=== PATIENT | female | born 1945 | race Caucasian/White ===

== ENCOUNTER 2021-05-07 18:11 | Inpatient (IN) | payer MEDICARE, OTHER, SELFPAY ==
--- NOTE | ~2021-05-07 | XR_ITS ---
EXAMINATION: XR ABDOMEN KUB CLINICAL INDICATION: Constipation COMPARISON: 11/02/2018 CT scan TECHNIQUE: AP view of the abdomen. FINDINGS: Stool and air seen throughout the colon to the rectum. No significant colonic distention. No significant small bowel dilatation. Degenerative changes in the spine with vascular calcification in the aorta. XR/XR KUB IMPRESSION: Essentially unremarkable bowel gas pattern with stool and air seen throughout the colon to the rectum.
[2021-05-07 18:24] VITALS: BP 118/80; PULSE 80
[2021-05-07 18:27] VITALS: BMI 23.1
--- NOTE | 2021-05-07 18:29 | ED.ABDPAIN ---
HPI - Abdominal Pain General Chief Complaint: Altered Mental Status <Mj Perez MD - Last Filed: 05/07/21 23:40> Stated Complaint: AMS <Mj Perez MD - Last Filed: 05/07/21 23:40> Time Seen by Provider: 05/07/21 18:28 <Mj Perez MD - Last Filed: 05/07/21 23:40> Source: patient <Mj Perez MD - Last Filed: 05/07/21 23:40> Mode of arrival: ambulatory <Mj Perez MD - Last Filed: 05/07/21 23:40> Limitations: no limitations <Mj Perez MD - Last Filed: 05/07/21 23:40> History of Present Illness HPI narrative: Patient with 3 days of constipation, patient has had a history of constipation. patient was concerned because of discomfort. No changes in medications or diet. According to daughter who has now come to the ED patient has had a full dementia workup including MRI that was negative. Patient is hearing voices and feels that there are electronic waves affecting her. She is not eating. She is paranoid with the family. Tonight patient is crying and not consolable. Recenly patient is driving around to look for her daughters. Patient is socially isolated. <Mj Perez MD - Last Filed: 05/07/21 23:40> MD elicited complaint: other (rectal pain) <Mj Perez MD - Last Filed: 05/07/21 23:40> Pertinent past history: none <Mj Perez MD - Last Filed: 05/07/21 23:40> Related Data Allergies/Adverse Reactions: Allergies Allergy/AdvReac Type Severity Reaction Status Date / Time codeine [CODEINE] AdvReac Mild NAUSEA Verified 05/07/21 18:21 <Mj Perez MD - Last Filed: 05/07/21 23:40> Review of Systems Constitutional: Reports no additional constitutional complaints <Mj Perez MD - Last Filed: 05/07/21 23:40> Eyes: Reports no additional eye complaints <Mj Perez MD - Last Filed: 05/07/21 23:40> Denies dizziness <Mj Perez MD - Last Filed: 05/07/21 23:40> Cardiovascular: Reports no additional cardiovascular complaints <Mj Perez MD - Last Filed: 05/07/21 23:40> Respiratory: Reports as per HPI <Mj Perez MD - Last Filed: 05/07/21 23:40> Gastrointestinal: Reports no additional gastrointestinal complaints <Mj Perez MD - Last Filed: 05/07/21 23:40> Genitourinary: Reports no additional female genitourinary complaints <Mj Perez MD - Last Filed: 05/07/21 23:40> Musculoskeletal: Reports no additional musculoskeletal complaints <Mj Perez MD - Last Filed: 05/07/21 23:40> Skin/Breast: Denies rash <Mj Perez MD - Last Filed: 05/07/21 23:40> Reports system reviewed and no additional complaints, except as documented, Denies dizziness and Denies Sensory deficit (Neuro) <Mj Perez MD - Last Filed: 05/07/21 23:40> Psychiatric: Denies anxiety <Mj Perez MD - Last Filed: 05/07/21 23:40> Physical Exam Vital Signs: Vital Signs: Last Vital Signs Temp 97.6 F 05/09/21 03:06 Pulse 98 05/09/21 03:06 Resp 05/09/21 03:06 BP 146/83 H 05/09/21 03:06 Pulse Ox 96 05/09/21 03:06 Body Mass Index 23.1 <Mj Perez MD - Last Filed: 05/07/21 23:40> Vital Signs: Last Vital Signs Temp 97.6 F 05/09/21 03:06 Pulse 98 05/09/21 03:06 Resp 05/09/21 03:06 BP 146/83 H 05/09/21 03:06 Pulse Ox 96 05/09/21 03:06 Body Mass Index 23.1 <JACINTO Zepeda - Last Filed: 05/08/21 08:15> Vital Signs: Last Vital Signs Temp 97.6 F 05/09/21 03:06 Pulse 98 05/09/21 03:06 Resp 05/09/21 03:06 BP 146/83 H 05/09/21 03:06 Pulse Ox 96 05/09/21 03:06 Body Mass Index 23.1 <Ingrid Mcnamara NP - Last Filed: 05/09/21 09:45> Const: Nutritional Appearance: thin <Mj Perez MD - Last Filed: 05/07/21 23:40> Orientation/consciousness: oriented to person <Mj Perez MD - Last Filed: 05/07/21 23:40> Limitations: behavioral limitations <Mj Perez MD - Last Filed: 05/07/21 23:40> HENMT: Head: Yes normal to inspection <Mj Perez MD - Last Filed: 05/07/21 23:40> Ears: external ears normal <Mj Perez MD - Last Filed: 05/07/21 23:40> General nose exam: Normal external nose present <Mj Perez MD - Last Filed: 05/07/21 23:40> Mouth: Normal oral and palatal mucosa present and oropharynx normal <Mj Perez MD - Last Filed: 05/07/21 23:40> Throat: Yes posterior oropharynx normal <Mj Perez MD - Last Filed: 05/07/21 23:40> Eyes: General: appearance normal, both eyes and all related structures <Mj Perez MD - Last Filed: 05/07/21 23:40> Neck: Other: supple <Mj Perez MD - Last Filed: 05/07/21 23:40> Neck: Yes normal visual inspection <Mj Perez MD - Last Filed: 05/07/21 23:40> Chest: Chest palpation & inspection: normal inspection of the chest <Mj Perez MD - Last Filed: 05/07/21 23:40> Resp: Auscultation: clear to auscultation bilaterally <Mj Perez MD - Last Filed: 05/07/21 23:40> Cardio: Jugular venous distension: no JVD <Mj Perez MD - Last Filed: 05/07/21 23:40> Rate: regular rate <Mj Perez MD - Last Filed: 05/07/21 23:40> Rhythm: regular rhythm <Mj Perez MD - Last Filed: 05/07/21 23:40> Heart sounds: S1 normal heart sound present and S2 normal heart sound present <Mj Perez MD - Last Filed: 05/07/21 23:40> GI: Other: scaphoid nontender abdomen <Mj Perez MD - Last Filed: 05/07/21 23:40> Auscultation: normal bowel sounds <Mj Perez MD - Last Filed: 05/07/21 23:40> : General: Yes no CVA tenderness <Mj Perez MD - Last Filed: 05/07/21 23:40> Back/Spine/Pelvis: Back: no CVA tenderness <Mj Perze MD - Last Filed: 05/07/21 23:40> Skin: General skin exam: no rashes or lesions noted <Mj Perez MD - Last Filed: 05/07/21 23:40> Neuro: General: oriented to person <Mj Perez MD - Last Filed: 05/07/21 23:40> Cranial nerves: Yes CN's II-XII intact bilaterally <Mj Perez MD - Last Filed: 05/07/21 23:40> Motor exam (neuro): 5/5 motor strength present throughout <Mj Perez MD - Last Filed: 05/07/21 23:40> Sensory Exam: No Sensory deficit (Neuro) <Mj Perez MD - Last Filed: 05/07/21 23:40> Extrem: General: Yes normal to inspection <Mj Perez MD - Last Filed: 05/07/21 23:40> Psych: Appearance: grossly normal <Mj Perez MD - Last Filed: 05/07/21 23:40> Course Reevaluation(s) Reevaluation #1: Based on conversation with daughter will have her evaluated by crisis <Mj Perez MD - Last Filed: 05/07/21 23:40> Time: 18:47 <Mj Perez MD - Last Filed: 05/07/21 23:40> Reevaluation #2: Patient placed in physician observation at 11:36pm The indication for observation is that the patient needs more time to see if her depression improves or he will need to be admitted. At this time the patient is very thin, lungs clear, CV RRR, abd nontender, neuro is intact. Discussed with crisis who will discuss with psychiatry in the morning <Mj Perez MD - Last Filed: 05/07/21 23:40> Time: 23:40 <Mj Perez MD - Last Filed: 05/07/21 23:40> Reevaluation #3: Physician observation continued. No acute overnight events. VS remain stable. She is reportedly not on any medications at home, nursing to confirm this with family later this morning. She was seen by [facility] who is recommending inpatient level of care at this time. Will continue to monitor. <JACINTO Zepeda - Last Filed: 05/08/21 08:15> Time: 08:12 <JACINTO Zepeda - Last Filed: 05/08/21 08:15> Additional Reevaluation(s): 05/09 0945-patient is currently in inpatient bed search. No complaints from nursing overnight. Vital signs reviewed and stable. Will continue physician observation and pending inpatient placement <Ingrid Mcnamara NP - Last Filed: 05/09/21 09:45> MDM - Abdominal Pain Lab Data Result diagrams: : 05/07/21 19:27 05/07/21 19:27 <Mj Perez MD - Last Filed: 05/07/21 23:40> Labs: Lab Results 05/07/21 05/07/21 05/07/21 Range/Units 19:27 19:27 19:27 WBC 5.3 (4.8-10.8) X10*3/uL RBC 4.13 L (4.20-5.50) X10*6/uL Hgb 13.4 (12.0-16.0) g/dl Hct 38.9 (37-47) % MCV 94.2 (80-98) fL MCH 32.4 (27.0-33.0) pg MCHC 34.4 (31.0-35.0) g/dl RDW 13.5 (11.0-16.0) % Plt Count 190 (160-400) X10*3/uL MPV 9.8 (9.4-12.3) fL Immature Gran % (Auto) 0.2 (0.0-0.4) % Neut % (Auto) 77.9 H (45-73) % Lymph % (Auto) 15.1 L (20-40) % [place] % (Auto) 6.0 (2-11) % Eos % (Auto) 0.4 (0-4) % Baso % (Auto) 0.4 (0-2) % Lymph # (Auto) 0.8 L (1.2-4.9) X10*3/uL [place] # (Auto) 0.3 (0.1-1.2) X10*3/uL Eos # (Auto) 0.0 (0.0-0.4) X10*3/uL Baso # (Auto) 0.0 (0.0-0.2) X10*3/uL Abs Immat Gran (auto) 0.01 (0.00-0.03) X10*3/uL Absolute Neuts (auto) 4.1 (2.0-8.3) X10*3/uL Absolute Nucleated RBC 0.000 (0.0-0.012) X10*3/uL Nucleated RBC % (auto) 0.0 (0.0-0.2) /100WBC Sodium 141 (135-145) mmol/L Potassium 3.6 (3.3-5.1) mmol/L Chloride 106 (96-108) mmol/L Carbon Dioxide 24 (22-29) mmol/L Anion Gap 15 (12-20) BUN 13 (9-16) mg/dL Creatinine 0.69 (0.5-1.4) mg/dL Estim Creat Clear Calc 60.8 Estimated GFR > 60 Random Glucose 104 (60-115) mg/dL Calcium 9.4 (8.4-10.2) mg/dL Total Bilirubin 1.1 H (0.0-1.0) mg/dL AST 27 (5-31) U/L ALT 23 (0-31) U/L Alkaline Phosphatase 89 (39-117) U/L Total Protein 6.5 (6.5-8.0) g/dL Albumin 4.1 (3.5-5.0) g/dL TSH (0.32-4.0) uIU/mL Urine Color Urine Appearance Urine pH (5.0-8.0) Ur Specific [place] (1.005-1.025) Urine Protein (NEG-TRACE) MG/DL Urine Glucose (UA) (NEG) MG/DL Urine Ketones (NEG) MG/DL Urine Blood (NEG) Urine Nitrite (NEG) Ur Leukocyte Esterase (NEG) Urine RBC (0) /HPF Urine WBC (0-4) /HPF Ur Squamous Epith Cells /LPF Urine Bacteria /LPF Urine Mucus /LPF Urine Opiates Screen (Not Detect) Urine Fentanyl Screen (Not Detect) Ur Barbiturates Screen (Not Detect) Ur Phencyclidine Scrn (Not Detect) Ur Amphetamines Screen (Not Detect) U Benzodiazepines Scrn (Not Detect) Urine Cocaine Screen (Not Detect) U Marijuana (THC) Screen (Not Detect) Ethyl Alcohol < 10 mg/dL T.pallidum Ab (EIA) (Nonreactive) COVID-19 ([facility]) (Negative) COVID-19 Clin Com 05/07/21 05/07/21 05/07/21 Range/Units 21:52 22:04 22:04 WBC (4.8-10.8) X10*3/uL RBC (4.20-5.50) X10*6/uL Hgb (12.0-16.0) g/dl Hct (37-47) % MCV (80-98) fL MCH (27.0-33.0) pg MCHC (31.0-35.0) g/dl RDW (11.0-16.0) % Plt Count (160-400) X10*3/uL MPV (9.4-12.3) fL Immature Gran % (Auto) (0.0-0.4) % Neut % (Auto) (45-73) % Lymph % (Auto) (20-40) % [place] % (Auto) (2-11) % Eos % (Auto) (0-4) % Baso % (Auto) (0-2) % Lymph # (Auto) (1.2-4.9) X10*3/uL [place] # (Auto) (0.1-1.2) X10*3/uL Eos # (Auto) (0.0-0.4) X10*3/uL Baso # (Auto) (0.0-0.2) X10*3/uL Abs Immat Gran (auto) (0.00-0.03) X10*3/uL Absolute Neuts (auto) (2.0-8.3) X10*3/uL Absolute Nucleated RBC (0.0-0.012) X10*3/uL Nucleated RBC % (auto) (0.0-0.2) /100WBC Sodium (135-145) mmol/L Potassium (3.3-5.1) mmol/L Chloride (96-108) mmol/L Carbon Dioxide (22-29) mmol/L Anion Gap (12-20) BUN (9-16) mg/dL Creatinine (0.5-1.4) mg/dL Estim Creat Clear Calc Estimated GFR Random Glucose (60-115) mg/dL Calcium (8.4-10.2) mg/dL Total Bilirubin (0.0-1.0) mg/dL AST (5-31) U/L ALT (0-31) U/L Alkaline Phosphatase (39-117) U/L Total Protein (6.5-8.0) g/dL Albumin (3.5-5.0) g/dL TSH (0.32-4.0) uIU/mL Urine Color YELLOW Urine Appearance CLEAR Urine pH 5.5 (5.0-8.0) Ur Specific [place] >= 1.030 H (1.005-1.025) Urine Protein TRACE (NEG-TRACE) MG/DL Urine Glucose (UA) NEG (NEG) MG/DL Urine Ketones 15 (NEG) MG/DL Urine Blood TRACE (NEG) Urine Nitrite NEG (NEG) Ur Leukocyte Esterase NEG (NEG) Urine RBC 1-4 (0) /HPF Urine WBC 0-2 (0-4) /HPF Ur Squamous Epith Cells TRACE /LPF Urine Bacteria TRACE /LPF Urine Mucus 1+ /LPF Urine Opiates Screen Not Detected (Not Detect) Urine Fentanyl Screen Not Detected (Not Detect) Ur Barbiturates Screen Not Detected (Not Detect) Ur Phencyclidine Scrn Not Detected (Not Detect) Ur Amphetamines Screen Not Detected (Not Detect) U Benzodiazepines Scrn Not Detected (Not Detect) Urine Cocaine Screen Not Detected (Not Detect) U Marijuana (THC) Screen Not Detected (Not Detect) Ethyl Alcohol mg/dL T.pallidum Ab (EIA) (Nonreactive) COVID-19 ([facility]) Negative (Negative) COVID-19 Clin Com See Note 05/08/21 05/08/21 Range/Units 17:58 17:58 WBC (4.8-10.8) X10*3/uL RBC (4.20-5.50) X10*6/uL Hgb (12.0-16.0) g/dl Hct (37-47) % MCV (80-98) fL MCH (27.0-33.0) pg MCHC (31.0-35.0) g/dl RDW (11.0-16.0) % Plt Count (160-400) X10*3/uL MPV (9.4-12.3) fL Immature Gran % (Auto) (0.0-0.4) % Neut % (Auto) (45-73) % Lymph % (Auto) (20-40) % [place] % (Auto) (2-11) % Eos % (Auto) (0-4) % Baso % (Auto) (0-2) % Lymph # (Auto) (1.2-4.9) X10*3/uL [place] # (Auto) (0.1-1.2) X10*3/uL Eos # (Auto) (0.0-0.4) X10*3/uL Baso # (Auto) (0.0-0.2) X10*3/uL Abs Immat Gran (auto) (0.00-0.03) X10*3/uL Absolute Neuts (auto) (2.0-8.3) X10*3/uL Absolute Nucleated RBC (0.0-0.012) X10*3/uL Nucleated RBC % (auto) (0.0-0.2) /100WBC Sodium (135-145) mmol/L Potassium (3.3-5.1) mmol/L Chloride (96-108) mmol/L Carbon Dioxide (22-29) mmol/L Anion Gap (12-20) BUN (9-16) mg/dL Creatinine (0.5-1.4) mg/dL Estim Creat Clear Calc Estimated GFR Random Glucose (60-115) mg/dL Calcium (8.4-10.2) mg/dL Total Bilirubin (0.0-1.0) mg/dL AST (5-31) U/L ALT (0-31) U/L Alkaline Phosphatase (39-117) U/L Total Protein (6.5-8.0) g/dL Albumin (3.5-5.0) g/dL TSH 1.61 (0.32-4.0) uIU/mL Urine Color Urine Appearance Urine pH (5.0-8.0) Ur Specific [place] (1.005-1.025) Urine Protein (NEG-TRACE) MG/DL Urine Glucose (UA) (NEG) MG/DL Urine Ketones (NEG) MG/DL Urine Blood (NEG) Urine Nitrite (NEG) Ur Leukocyte Esterase (NEG) Urine RBC (0) /HPF Urine WBC (0-4) /HPF Ur Squamous Epith Cells /LPF Urine Bacteria /LPF Urine Mucus /LPF Urine Opiates Screen (Not Detect) Urine Fentanyl Screen (Not Detect) Ur Barbiturates Screen (Not Detect) Ur Phencyclidine Scrn (Not Detect) Ur Amphetamines Screen (Not Detect) U Benzodiazepines Scrn (Not Detect) Urine Cocaine Screen (Not Detect) U Marijuana (THC) Screen (Not Detect) Ethyl Alcohol mg/dL T.pallidum Ab (EIA) Nonreactive (Nonreactive) COVID-19 ([facility]) (Negative) COVID-19 Clin Com <Mj Perez MD - Last Filed: 05/07/21 23:40> Lab Results 05/07/21 05/07/21 05/07/21 Range/Units 19:27 19: 19:27 WBC 5.3 (4.8-10.8) X10*3/uL RBC 4.13 L (4.20-5.50) X10*6/uL Hgb 13.4 (12.0-16.0) g/dl Hct 38.9 (37-47) % MCV 94.2 (80-98) fL MCH 32.4 (27.0-33.0) pg MCHC 34.4 (31.0-35.0) g/dl RDW 13.5 (11.0-16.0) % Plt Count 190 (160-400) X10*3/uL MPV 9.8 (9.4-12.3) fL Immature Gran % (Auto) 0.2 (0.0-0.4) % Neut % (Auto) 77.9 H (45-73) % Lymph % (Auto) 15.1 L (20-40) % [place] % (Auto) 6.0 (2-11) % Eos % (Auto) 0.4 (0-4) % Baso % (Auto) 0.4 (0-2) % Lymph # (Auto) 0.8 L (1.2-4.9) X10*3/uL [place] # (Auto) 0.3 (0.1-1.2) X10*3/uL Eos # (Auto) 0.0 (0.0-0.4) X10*3/uL Baso # (Auto) 0.0 (0.0-0.2) X10*3/uL Abs Immat Gran (auto) 0.01 (0.00-0.03) X10*3/uL Absolute Neuts (auto) 4.1 (2.0-8.3) X10*3/uL Absolute Nucleated RBC 0.000 (0.0-0.012) X10*3/uL Nucleated RBC % (auto) 0.0 (0.0-0.2) /100WBC Sodium 141 (135-145) mmol/L Potassium 3.6 (3.3-5.1) mmol/L Chloride 106 (96-108) mmol/L Carbon Dioxide 24 (22-29) mmol/L Anion Gap 15 (12-20) BUN 13 (9-16) mg/dL Creatinine 0.69 (0.5-1.4) mg/dL Estim Creat Clear Calc 60.8 Estimated GFR > 60 Random Glucose 104 (60-115) mg/dL Calcium 9.4 (8.4-10.2) mg/dL Total Bilirubin 1.1 H (0.0-1.0) mg/dL AST 27 (5-31) U/L ALT 23 (0-31) U/L Alkaline Phosphatase 89 (39-117) U/L Total Protein 6.5 (6.5-8.0) g/dL Albumin 4.1 (3.5-5.0) g/dL TSH (0.32-4.0) uIU/mL Urine Color Urine Appearance Urine pH (5.0-8.0) Ur Specific [place] (1.005-1.025) Urine Protein (NEG-TRACE) MG/DL Urine Glucose (UA) (NEG) MG/DL Urine Ketones (NEG) MG/DL Urine Blood (NEG) Urine Nitrite (NEG) Ur Leukocyte Esterase (NEG) Urine RBC (0) /HPF Urine WBC (0-4) /HPF Ur Squamous Epith Cells /LPF Urine Bacteria /LPF Urine Mucus /LPF Urine Opiates Screen (Not Detect) Urine Fentanyl Screen (Not Detect) Ur Barbiturates Screen (Not Detect) Ur Phencyclidine Scrn (Not Detect) Ur Amphetamines Screen (Not Detect) U Benzodiazepines Scrn (Not Detect) Urine Cocaine Screen (Not Detect) U Marijuana (THC) Screen (Not Detect) Ethyl Alcohol < 10 mg/dL T.pallidum Ab (EIA) (Nonreactive) COVID-19 ([facility]) (Negative) COVID-19 Clin Com 05/07/21 05/07/21 05/07/21 Range/Units 21:52 22:04 22:04 WBC (4.8-10.8) X10*3/uL RBC (4.20-5.50) X10*6/uL Hgb (12.0-16.0) g/dl Hct (37-47) % MCV (80-98) fL MCH (27.0-33.0) pg MCHC (31.0-35.0) g/dl RDW (11.0-16.0) % Plt Count (160-400) X10*3/uL MPV (9.4-12.3) fL Immature Gran % (Auto) (0.0-0.4) % Neut % (Auto) (45-73) % Lymph % (Auto) (20-40) % [place] % (Auto) (2-11) % Eos % (Auto) (0-4) % Baso % (Auto) (0-2) % Lymph # (Auto) (1.2-4.9) X10*3/uL [place] # (Auto) (0.1-1.2) X10*3/uL Eos # (Auto) (0.0-0.4) X10*3/uL Baso # (Auto) (0.0-0.2) X10*3/uL Abs Immat Gran (auto) (0.00-0.03) X10*3/uL Absolute Neuts (auto) (2.0-8.3) X10*3/uL Absolute Nucleated RBC (0.0-0.012) X10*3/uL Nucleated RBC % (auto) (0.0-0.2) /100WBC Sodium (135-145) mmol/L Potassium (3.3-5.1) mmol/L Chloride (96-108) mmol/L Carbon Dioxide (22-29) mmol/L Anion Gap (12-20) BUN (9-16) mg/dL Creatinine (0.5-1.4) mg/dL Estim Creat Clear Calc Estimated GFR Random Glucose (60-115) mg/dL Calcium (8.4-10.2) mg/dL Total Bilirubin (0.0-1.0) mg/dL AST (5-31) U/L ALT (0-31) U/L Alkaline Phosphatase (39-117) U/L Total Protein (6.5-8.0) g/dL Albumin (3.5-5.0) g/dL TSH (0.32-4.0) uIU/mL Urine Color YELLOW Urine Appearance CLEAR Urine pH 5.5 (5.0-8.0) Ur Specific [place] >= 1.030 H (1.005-1.025) Urine Protein TRACE (NEG-TRACE) MG/DL Urine Glucose (UA) NEG (NEG) MG/DL Urine Ketones 15 (NEG) MG/DL Urine Blood TRACE (NEG) Urine Nitrite NEG (NEG) Ur Leukocyte Esterase NEG (NEG) Urine RBC 1-4 (0) /HPF Urine WBC 0-2 (0-4) /HPF Ur Squamous Epith Cells TRACE /LPF Urine Bacteria TRACE /LPF Urine Mucus 1+ /LPF Urine Opiates Screen Not Detected (Not Detect) Urine Fentanyl Screen Not Detected (Not Detect) Ur Barbiturates Screen Not Detected (Not Detect) Ur Phencyclidine Scrn Not Detected (Not Detect) Ur Amphetamines Screen Not Detected (Not Detect) U Benzodiazepines Scrn Not Detected (Not Detect) Urine Cocaine Screen Not Detected (Not Detect) U Marijuana (THC) Screen Not Detected (Not Detect) Ethyl Alcohol mg/dL T.pallidum Ab (EIA) (Nonreactive) COVID-19 ([facility]) Negative (Negative) COVID-19 Clin Com See Note 05/08/21 05/08/21 Range/Units 17:58 17:58 WBC (4.8-10.8) X10*3/uL RBC (4.20-5.50) X10*6/uL Hgb (12.0-16.0) g/dl Hct (37-47) % MCV (80-98) fL MCH (27.0-33.0) pg MCHC (31.0-35.0) g/dl RDW (11.0-16.0) % Plt Count (160-400) X10*3/uL MPV (9.4-12.3) fL Immature Gran % (Auto) (0.0-0.4) % Neut % (Auto) (45-73) % Lymph % (Auto) (20-40) % [place] % (Auto) (2-11) % Eos % (Auto) (0-4) % Baso % (Auto) (0-2) % Lymph # (Auto) (1.2-4.9) X10*3/uL [place] # (Auto) (0.1-1.2) X10*3/uL Eos # (Auto) (0.0-0.4) X10*3/uL Baso # (Auto) (0.0-0.2) X10*3/uL Abs Immat Gran (auto) (0.00-0.03) X10*3/uL Absolute Neuts (auto) (2.0-8.3) X10*3/uL Absolute Nucleated RBC (0.0-0.012) X10*3/uL Nucleated RBC % (auto) (0.0-0.2) /100WBC Sodium (135-145) mmol/L Potassium (3.3-5.1) mmol/L Chloride (96-108) mmol/L Carbon Dioxide (22-29) mmol/L Anion Gap (12-20) BUN (9-16) mg/dL Creatinine (0.5-1.4) mg/dL Estim Creat Clear Calc Estimated GFR Random Glucose (60-115) mg/dL Calcium (8.4-10.2) mg/dL Total Bilirubin (0.0-1.0) mg/dL AST (5-31) U/L ALT (0-31) U/L Alkaline Phosphatase (39-117) U/L Total Protein (6.5-8.0) g/dL Albumin (3.5-5.0) g/dL TSH 1.61 (0.32-4.0) uIU/mL Urine Color Urine Appearance Urine pH (5.0-8.0) Ur Specific [place] (1.005-1.025) Urine Protein (NEG-TRACE) MG/DL Urine Glucose (UA) (NEG) MG/DL Urine Ketones (NEG) MG/DL Urine Blood (NEG) Urine Nitrite (NEG) Ur Leukocyte Esterase (NEG) Urine RBC (0) /HPF Urine WBC (0-4) /HPF Ur Squamous Epith Cells /LPF Urine Bacteria /LPF Urine Mucus /LPF Urine Opiates Screen (Not Detect) Urine Fentanyl Screen (Not Detect) Ur Barbiturates Screen (Not Detect) Ur Phencyclidine Scrn (Not Detect) Ur Amphetamines Screen (Not Detect) U Benzodiazepines Scrn (Not Detect) Urine Cocaine Screen (Not Detect) U Marijuana (THC) Screen (Not Detect) Ethyl Alcohol mg/dL T.pallidum Ab (EIA) Nonreactive (Nonreactive) COVID-19 ([facility]) (Negative) COVID-19 Clin Com <JACINTO Zepeda - Last Filed: 05/08/21 08:15> Lab Results 05/07/21 05/07/21 05/07/21 Range/Units 19:27 19:27 19:27 WBC 5.3 (4.8-10.8) X10*3/uL RBC 4.13 L (4.20-5.50) X10*6/uL Hgb 13.4 (12.0-16.0) g/dl Hct 38.9 (37-47) % MCV 94.2 (80-98) fL MCH 32.4 (27.0-33.0) pg MCHC 34.4 (31.0-35.0) g/dl RDW 13.5 (11.0-16.0) % Plt Count 190 (160-400) X10*3/uL MPV 9.8 (9.4-12.3) fL Immature Gran % (Auto) 0.2 (0.0-0.4) % Neut % (Auto) 77.9 H (45-73) % Lymph % (Auto) 15.1 L (20-40) % [place] % (Auto) 6.0 (2-11) % Eos % (Auto) 0.4 (0-4) % Baso % (Auto) 0.4 (0-2) % Lymph # (Auto) 0.8 L (1.2-4.9) X10*3/uL [place] # (Auto) 0.3 (0.1-1.2) X10*3/uL Eos # (Auto) 0.0 (0.0-0.4) X10*3/uL Baso # (Auto) 0.0 (0.0-0.2) X10*3/uL Abs Immat Gran (auto) 0.01 (0.00-0.03) X10*3/uL Absolute Neuts (auto) 4.1 (2.0-8.3) X10*3/uL Absolute Nucleated RBC 0.000 (0.0-0.012) X10*3/uL Nucleated RBC % (auto) 0.0 (0.0-0.2) /100WBC Sodium 141 (135-145) mmol/L Potassium 3.6 (3.3-5.1) mmol/L Chloride 106 (96-108) mmol/L Carbon Dioxide 24 (22-29) mmol/L Anion Gap 15 (12-20) BUN 13 (9-16) mg/dL Creatinine 0.69 (0.5-1.4) mg/dL Estim Creat Clear Calc 60.8 Estimated GFR > 60 Random Glucose 104 (60-115) mg/dL Calcium 9.4 (8.4-10.2) mg/dL Total Bilirubin 1.1 H (0.0-1.0) mg/dL AST 27 (5-31) U/L ALT 23 (0-31) U/L Alkaline Phosphatase 89 (39-117) U/L Total Protein 6.5 (6.5-8.0) g/dL Albumin 4.1 (3.5-5.0) g/dL TSH (0.32-4.0) uIU/mL Urine Color Urine Appearance Urine pH (5.0-8.0) Ur Specific [place] (1.005-1.025) Urine Protein (NEG-TRACE) MG/DL Urine Glucose (UA) (NEG) MG/DL Urine Ketones (NEG) MG/DL Urine Blood (NEG) Urine Nitrite (NEG) Ur Leukocyte Esterase (NEG) Urine RBC (0) /HPF Urine WBC (0-4) /HPF Ur Squamous Epith Cells /LPF Urine Bacteria /LPF Urine Mucus /LPF Urine Opiates Screen (Not Detect) Urine Fentanyl Screen (Not Detect) Ur Barbiturates Screen (Not Detect) Ur Phencyclidine Scrn (Not Detect) Ur Amphetamines Screen (Not Detect) U Benzodiazepines Scrn (Not Detect) Urine Cocaine Screen (Not Detect) U Marijuana (THC) Screen (Not Detect) Ethyl Alcohol < 10 mg/dL T.pallidum Ab (EIA) (Nonreactive) COVID-19 ([facility]) (Negative) COVID-19 Clin Com 05/07/21 05/07/21 05/07/21 Range/Units 21:52 22:04 22:04 WBC (4.8-10.8) X10*3/uL RBC (4.20-5.50) X10*6/uL Hgb (12.0-16.0) g/dl Hct (37-47) % MCV (80-98) fL MCH (27.0-33.0) pg MCHC (31.0-35.0) g/dl RDW (11.0-16.0) % Plt Count (160-400) X10*3/uL MPV (9.4-12.3) fL Immature Gran % (Auto) (0.0-0.4) % Neut % (Auto) (45-73) % Lymph % (Auto) (20-40) % [place] % (Auto) (2-11) % Eos % (Auto) (0-4) % Baso % (Auto) (0-2) % Lymph # (Auto) (1.2-4.9) X10*3/uL [place] # (Auto) (0.1-1.2) X10*3/uL Eos # (Auto) (0.0-0.4) X10*3/uL Baso # (Auto) (0.0-0.2) X10*3/uL Abs Immat Gran (auto) (0.00-0.03) X10*3/uL Absolute Neuts (auto) (2.0-8.3) X10*3/uL Absolute Nucleated RBC (0.0-0.012) X10*3/uL Nucleated RBC % (auto) (0.0-0.2) /100WBC Sodium (135-145) mmol/L Potassium (3.3-5.1) mmol/L Chloride (96-108) mmol/L Carbon Dioxide (22-29) mmol/L Anion Gap (12-20) BUN (9-16) mg/dL Creatinine (0.5-1.4) mg/dL Estim Creat Clear Calc Estimated GFR Random Glucose (60-115) mg/dL Calcium (8.4-10.2) mg/dL Total Bilirubin (0.0-1.0) mg/dL AST (5-31) U/L ALT (0-31) U/L Alkaline Phosphatase (39-117) U/L Total Protein (6.5-8.0) g/dL Albumin (3.5-5.0) g/dL TSH (0.32-4.0) uIU/mL Urine Color YELLOW Urine Appearance CLEAR Urine pH 5.5 (5.0-8.0) Ur Specific [place] >= 1.030 H (1.005-1.025) Urine Protein TRACE (NEG-TRACE) MG/DL Urine Glucose (UA) NEG (NEG) MG/DL Urine Ketones 15 (NEG) MG/DL Urine Blood TRACE (NEG) Urine Nitrite NEG (NEG) Ur Leukocyte Esterase NEG (NEG) Urine RBC 1-4 (0) /HPF Urine WBC 0-2 (0-4) /HPF Ur Squamous Epith Cells TRACE /LPF Urine Bacteria TRACE /LPF Urine Mucus 1+ /LPF Urine Opiates Screen Not Detected (Not Detect) Urine Fentanyl Screen Not Detected (Not Detect) Ur Barbiturates Screen Not Detected (Not Detect) Ur Phencyclidine Scrn Not Detected (Not Detect) Ur Amphetamines Screen Not Detected (Not Detect) U Benzodiazepines Scrn Not Detected (Not Detect) Urine Cocaine Screen Not Detected (Not Detect) U Marijuana (THC) Screen Not Detected (Not Detect) Ethyl Alcohol mg/dL T.pallidum Ab (EIA) (Nonreactive) COVID-19 ([facility]) Negative (Negative) COVID-19 Clin Com See Note 05/08/21 05/08/21 Range/Units 17:58 17:58 WBC (4.8-10.8) X10*3/uL RBC (4.20-5.50) X10*6/uL Hgb (12.0-16.0) g/dl Hct (37-47) % MCV (80-98) fL MCH (27.0-33.0) pg MCHC (31.0-35.0) g/dl RDW (11.0-16.0) % Plt Count (160-400) X10*3/uL MPV (9.4-12.3) fL Immature Gran % (Auto) (0.0-0.4) % Neut % (Auto) (45-73) % Lymph % (Auto) (20-40) % [place] % (Auto) (2-11) % Eos % (Auto) (0-4) % Baso % (Auto) (0-2) % Lymph # (Auto) (1.2-4.9) X10*3/uL [place] # (Auto) (0.1-1.2) X10*3/uL Eos # (Auto) (0.0-0.4) X10*3/uL Baso # (Auto) (0.0-0.2) X10*3/uL Abs Immat Gran (auto) (0.00-0.03) X10*3/uL Absolute Neuts (auto) (2.0-8.3) X10*3/uL Absolute Nucleated RBC (0.0-0.012) X10*3/uL Nucleated RBC % (auto) (0.0-0.2) /100WBC Sodium (135-145) mmol/L Potassium (3.3-5.1) mmol/L Chloride (96-108) mmol/L Carbon Dioxide (22-29) mmol/L Anion Gap (12-20) BUN (9-16) mg/dL Creatinine (0.5-1.4) mg/dL Estim Creat Clear Calc Estimated GFR Random Glucose (60-115) mg/dL Calcium (8.4-10.2) mg/dL Total Bilirubin (0.0-1.0) mg/dL AST (5-31) U/L ALT (0-31) U/L Alkaline Phosphatase (39-117) U/L Total Protein (6.5-8.0) g/dL Albumin (3.5-5.0) g/dL TSH 1.61 (0.32-4.0) uIU/mL Urine Color Urine Appearance Urine pH (5.0-8.0) Ur Specific [place] (1.005-1.025) Urine Protein (NEG-TRACE) MG/DL Urine Glucose (UA) (NEG) MG/DL Urine Ketones (NEG) MG/DL Urine Blood (NEG) Urine Nitrite (NEG) Ur Leukocyte Esterase (NEG) Urine RBC (0) /HPF Urine WBC (0-4) /HPF Ur Squamous Epith Cells /LPF Urine Bacteria /LPF Urine Mucus /LPF Urine Opiates Screen (Not Detect) Urine Fentanyl Screen (Not Detect) Ur Barbiturates Screen (Not Detect) Ur Phencyclidine Scrn (Not Detect) Ur Amphetamines Screen (Not Detect) U Benzodiazepines Scrn (Not Detect) Urine Cocaine Screen (Not Detect) U Marijuana (THC) Screen (Not Detect) Ethyl Alcohol mg/dL T.pallidum Ab (EIA) Nonreactive (Nonreactive) COVID-19 ([facility]) (Negative) COVID-19 Clin Com <Ingrid Mcnamara NP - Last Filed: 05/09/21 09:45> Discharge Plan Discharge Clinical Impression: Paranoia <Mj Perez MD - Last Filed: 05/07/21 23:40> [facility] Past Medical History Medical History: Medical History (Updated 05/08/21 @ 16:45 by Karishma Baez NP) Graves' disease <Mj Perez MD - Last Filed: 05/07/21 23:40> Social History Social History: Social History Patient Tobacco Use Status: Tobacco use Unknown Advance Directives: No Guardian: No <Mj Perez MD - Last Filed: 05/07/21 23:40>
[2021-05-07 18:34] VITALS: BP 143/80; PULSE 96; RESP 18; TEMP 36.9; O2SAT 96
[2021-05-07 19:31] LABS: MANUAL DIFF FLAG NO
[2021-05-07 19:32] LABS: Basophils Percent Auto 0.4 % (0-2); Eosinophils Percent Auto 0.4 % (0-4); Hematocrit 38.9 % (37-47); Hemoglobin 13.4 g/dl (12.0-16.0); Imm Gran Abs Auto 0.01 X10*3/uL (0.00-0.03); Imm Gran Pct Auto 0.2 % (0.0-0.4); Lymphocytes Absolute Auto 0.8 X10*3/uL (1.2-4.9); Lymphocytes Percent Auto 15.1 % (20-40); Mean Corpuscular HGB Conc 34.4 g/dl (31.0-35.0); Mean Corpuscular Hemoglobin 32.4 pg (27.0-33.0); Mean Corpuscular Volume 94.2 fL (80-98); Mean Platelet Volume 9.8 fL (9.4-12.3); Monocytes Absolute Auto 0.3 X10*3/uL (0.1-1.2); Neutrophils Absolute Auto 4.1 X10*3/uL (2.0-8.3); Neutrophils Percent Auto 77.9 % (45-73); Platelet Count 190 X10*3/uL (160-400); Red Blood Count 4.13 X10*6/uL (4.20-5.50); Red Cell Distribution Width 13.5 % (11.0-16.0); White Blood Count 5.3 X10*3/uL (4.8-10.8)
[2021-05-07 19:43] LABS: Ethanol < 10 mg/dL
[2021-05-07 19:47] LABS: Alanine Aminotransferase 23 U/L (0-31); Albumin Level 4.1 g/dL (3.5-5.0); Alkaline Phosphatase 89 U/L (39-117); Anion Gap 15 (12-20); Aspartate Amino Transferase 27 U/L (5-31); Bilirubin Total 1.1 mg/dL (0.0-1.0); Blood Urea Nitrogen 13 mg/dL (9-16); Calcium 9.4 mg/dL (8.4-10.2); Carbon Dioxide 24 mmol/L (22-29); Chloride 106 mmol/L (96-108); Creatinine Clr Calc Pharmacy 60.8; Estimated Glomerular Filt Rate > 60; Glucose Random 104 mg/dL (60-115); Potassium 3.6 mmol/L (3.3-5.1); Sodium 141 mmol/L (135-145); Total Protein 6.5 g/dL (6.5-8.0)
[2021-05-07 20:32] VITALS: BP 129/74; PULSE 90; RESP 16; O2SAT 99
--- NOTE | 2021-05-07 21:25 | PC.NURSE ---
pt daughter called in and stated that her mother has been pacing at home, thinking she is going to tonight of colon cancer tells the daughter to get the kids out of the house cause she is going to be screeming in pain when she goes . pt is hearing voices, decrease po intake and weight loss noticed by the daughter Charlotte LesterPedro [phone].
[2021-05-07 22:05] VITALS: BP 149/73; PULSE 85; RESP 16; O2SAT 99
[2021-05-07 22:12] LABS: COVID-19 Test Negative (Negative)
[2021-05-07 22:28] LABS: Amphetamine Screen Urine Not Detected (Not Detect); Barbiturates, Urine Not Detected (Not Detect); Benzodiazepines Screen Urine Not Detected (Not Detect); Cannabinoid Screen Urine Not Detected (Not Detect); Cocaine Screen Urine Not Detected (Not Detect); Fentanyl, urine Not Detected (Not Detect); Opiate Screen Urine Not Detected (Not Detect); Phencyclidine Screen Urine Not Detected (Not Detect)
[2021-05-07 22:46] LABS: Appearance Urine CLEAR; Color Urine YELLOW; Glucose Urine UA NEG (NEG); Leukocyte Esterase Urine NEG (NEG); Nitrite Urine NEG (NEG); PH 5.5 (5.0-8.0); Specific Gravity - Urine >= 1.030 (1.005-1.025); UACC Culture Trigger NO; Urine Blood TRACE (NEG); Urine Ketones 15 MG/DL (NEG); Urine Protein TRACE MG/DL (NEG-TRACE)
--- NOTE | 2021-05-07 23:21 | PC.NURSE ---
pt being seen by care team at this time. pt was walking down the [place] and believed her daughter was her to pick her up. pt educated on the need to be seen by bhn for evaluation. pt followed commands and got back into her hospital gown, water given and now care team is in with the pt. pt is still confussed and doesnt recall any of the information that the daughter relayed onto this rn.
[2021-05-07 23:46] LABS: WBC Urine 0-2 /HPF (0-4)
[2021-05-07 23:47] LABS: Bacteria Urine TRACE /LPF; Mucus Urine 1+ /LPF; Squamous Epithelial Cell Urine TRACE /LPF
--- NOTE | 2021-05-08 01:39 | MHC.CARE ---
CARE team completed evaluation. Plan is so psychiatric admission to older adult unit. Pt will board in ED pending acceptance and transfer to facility/unit. She will be presented to S1 Older Adult Unit for possible admission if an appropriate bed is available.
[2021-05-08 02:00] VITALS: RESP 16
[2021-05-08 04:00] VITALS: RESP 16
[2021-05-08 05:58] VITALS: BP 150/77; PULSE 93; RESP 16; O2SAT 98
--- NOTE | 2021-05-08 07:00 | PC.NURSE ---
patient awake, seated on edge of bed, minimal spontaneous interactions with staff patient appears in no distress.
[2021-05-08 08:08] VITALS: BP 130/92; PULSE 94; RESP 15; TEMP 36.9; O2SAT 97
--- NOTE | 2021-05-08 09:57 | PC.NURSE ---
attempted to call daughter with patient unfortunately no answer.
--- NOTE | 2021-05-08 10:30 | PC.NURSE ---
brooke daughter called, has moms purse. would like updates w inpatient admission brooke [phone]
--- NOTE | 2021-05-08 12:03 | MHC.CARE ---
Returned call from patient's daughter (Charlotte Encarnacion [phone]) for an update. S1 can accept patient for admission tomorrow, advised her that we can search other facilities or wait for the opening tomorrow, daughter stated the family definitely wants patient here and will wait. She added that her mother has expressed strongly that she, won't take any pills, explained that providers will not force her to take medication but if appropriate will offer, educate and encourage. Daughter of patient feels she should not visit at this time because her mother called her and asked her to come get her and was upset, that may be more distressing. Would like to be updated if there are any changes. Psychiatrist will consult while patient is in the ED.
[2021-05-08 14:18] VITALS: BP 133/81; PULSE 106; RESP 15; TEMP 36.6; O2SAT 95
--- NOTE | 2021-05-08 15:13 | PM.PSYCN ---
History of Present Illness Date of Service: 05/08/21 Chief Complaint: AMS Reason for Consult: medication Requesting physician: Tika Roberto Discussed with referring provider: Yes Sources of Information: patient interviewed, chart reviewed and crisis/core team assessment reviewed HPI Narrative: Ruma is a 75 y.o. Who does not have a past psych history or diagnosis but is presenting at [facility] [place] [place] ED on 05/07/2021 with new onset of psychosis. Initially, Ruma arrived to the ED reporting 3 days of constipation, history of constipation. Per patient?s daughter, prior to arrival at the ED Ruma was pacing in her home, claiming that she was going to tonight from colon cancer, and told her daughter to get the children out of the house because she was going to be screaming in pain. She has disclosed to her daughter that she has been hearing voices and that there are electronic waves affecting her. Today, she is guarded and not willing to engage in clinical interview, appears paranoid. She presents with poor insight into her symptoms and does not know why she is in the hospital, saying she wants to go home and that she is refusing any evaluation today. Of note, she is now denying ever saying she had colon cancer or other bizarre behaviors, irritable when questioned about this. Per CARE team and ED eval, Ruma has had a full dementia workup including MRI in OP setting and this was negative for any pathology. She has had a decline in her mental status x 5 weeks and has been decompensating in her self care i.e. not eating, has had recent wt loss, isolating. Per her daughter, she has been presenting with bizarre behaviors that are increasingly concerning in nature, including driving around to look for her daughters, drove to a neighbors house and sat in their driveway waiting for them to come out so she could ask them where her daughter is, last week she woke daughter up in the middle of the night saying that she needed her to bring her to the police department but wouldn't tell her why and then had no recollection of it in the morning.? 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 She retired early to take care of her parents who were both struggling with Alzheimer's dementia. -Lives with , her daughter Madie and grandchildren Inna (10) and Alexander (7). Has two daughters (Madie, Charlotte), to x 44 yrs.? FH: -Parents of Alzheimer?s dementia complications PPH: -Per family, no hx of psych IPLOC, crisis evals, or psych medication trials. She recently had a cognitive evaluation and an MRI to rule out onset of dementia.?? -Briefly worked with a therapist following the of her father 17 years ago. PMH: -Daughter reported Ruma has had a poor appetite with weight loss of approximately 20lbs in the past month or so -Hx of Graves Disease, per daughter this had been in remission/ untreated for 20 yrs Substance use: -Utox Negative all substances. Denies ETOH abuse [facility] Medical History (Updated 05/08/21 @ 16:45 by Karishma Baez NP) Graves' disease Diagnostics Vital Signs (24Hr): Vital Signs - 24 hr 05/07/21 18:34 05/07/21 20:32 05/07/21 22:05 Temperature 98.4 F Pulse Rate 96 90 85 Respiratory Rate 18 16 16 Blood Pressure 143/80 H 129/74 149/73 H Pulse Oximetry 96 99 99 05/08/21 02:00 05/08/21 04:00 05/08/21 05:58 Temperature Pulse Rate 93 Respiratory Rate 16 16 16 Blood Pressure 150/77 H Pulse Oximetry 98 05/08/21 08:08 05/08/21 14:18 Temperature 98.4 F 97.9 F Pulse Rate 94 106 H Respiratory Rate 15 15 Blood Pressure 130/92 H 133/81 Pulse Oximetry 97 95 Body Mass Index 23.1 Labs Results: 05/07/21 19:27 05/07/21 19:27 Labs: Laboratory Results - last 48 hr 05/07/21 05/07/21 05/07/21 19:27 19:27 19:27 WBC 5.3 RBC 4.13 L Hgb 13.4 Hct 38.9 MCV 94.2 MCH 32.4 MCHC 34.4 RDW 13.5 Plt Count 190 MPV 9.8 Immature Gran % (Auto) 0.2 Neut % (Auto) 77.9 H Lymph % (Auto) 15.1 L [place] % (Auto) 6.0 Eos % (Auto) 0.4 Baso % (Auto) 0.4 Lymph # (Auto) 0.8 L [place] # (Auto) 0.3 Eos # (Auto) 0.0 Baso # (Auto) 0.0 Abs Immat Gran (auto) 0.01 Absolute Neuts (auto) 4.1 Absolute Nucleated RBC 0.000 Nucleated RBC % (auto) 0.0 Sodium 141 Potassium 3.6 Chloride 106 Carbon Dioxide 24 Anion Gap 15 BUN 13 Creatinine 0.69 Estim Creat Clear Calc 60.8 Estimated GFR > 60 Random Glucose 104 Calcium 9.4 Total Bilirubin 1.1 H AST 27 ALT 23 Alkaline Phosphatase 89 Total Protein 6.5 Albumin 4.1 Urine Color Urine Appearance Urine pH Ur Specific [place] Urine Protein Urine Glucose (UA) Urine Ketones Urine Blood Urine Nitrite Ur Leukocyte Esterase Urine RBC Urine WBC Ur Squamous Epith Cells Urine Bacteria Urine Mucus Urine Opiates Screen Urine Fentanyl Screen Ur Barbiturates Screen Ur Phencyclidine Scrn Ur Amphetamines Screen U Benzodiazepines Scrn Urine Cocaine Screen U Marijuana (THC) Screen Ethyl Alcohol < 10 COVID-19 ([facility]) COVID-19 [facility] Com 05/07/21 05/07/21 05/07/21 21:52 22:04 22:04 WBC RBC Hgb Hct MCV MCH MCHC RDW Plt Count MPV Immature Gran % (Auto) Neut % (Auto) Lymph % (Auto) [place] % (Auto) Eos % (Auto) Baso % (Auto) Lymph # (Auto) [place] # (Auto) Eos # (Auto) Baso # (Auto) Abs Immat Gran (auto) Absolute Neuts (auto) Absolute Nucleated RBC Nucleated RBC % (auto) Sodium Potassium Chloride Carbon Dioxide Anion Gap BUN Creatinine Estim Creat Clear Calc Estimated GFR Random Glucose Calcium Total Bilirubin AST ALT Alkaline Phosphatase Total Protein Albumin Urine Color YELLOW Urine Appearance CLEAR Urine pH 5.5 Ur Specific [place] >= 1.030 H Urine Protein TRACE Urine Glucose (UA) NEG Urine Ketones 15 Urine Blood TRACE Urine Nitrite NEG Ur Leukocyte Esterase NEG Urine RBC 1-4 Urine WBC 0-2 Ur Squamous Epith Cells TRACE Urine Bacteria TRACE Urine Mucus 1+ Urine Opiates Screen Not Detected Urine Fentanyl Screen Not Detected Ur Barbiturates Screen Not Detected Ur Phencyclidine Scrn Not Detected Ur Amphetamines Screen Not Detected U Benzodiazepines Scrn Not Detected Urine Cocaine Screen Not Detected U Marijuana (THC) Screen Not Detected Ethyl Alcohol COVID-19 ([facility]) Negative COVID-19 Clin Com See Note Imaging Radiology Impressions: ITS Impressions KUB X-Ray 05/07/21 18:39 IMPRESSION: Essentially unremarkable bowel gas pattern with stool and air seen throughout the colon to the rectum. Mental Status Exam Mental Status Exam Narrative: Not oriented to situation or time. Appears stated age, thin/ underweight. Intermittent eye contact, inattentive. No Tics or Tremors. No abnormal involuntary movements. Agitated, uncooperative, difficult to engage. Non-pressured speech, nonspontaneous with regular rate and rhythm, normal volume and prosody. No prolonged speech latency or dysarthria. Mood is [refused to state,] affect is constricted, irritable. Refused to answer questions about safety or thought content. Thoughts appear paranoid in content, perseverative on when she is going home, unable to rationalize, trails off in speech and unable to answer abstract questions. No known cognitive or memory impairment. Insight/ Judgment poor. Medications Allergies Allergies Allergy/AdvReac Type Severity Reaction Status Date / Time codeine [CODEINE] AdvReac Mild NAUSEA Verified 05/07/21 18:21 Assessment & Plan Assessment & Plan (1) Psychosis: Status: Acute Code(s): F29 - Unspecified psychosis not due to a substance or known physiological condition Assessment and Plan: Ruma is a 75 y.o. Who does not have a past psych history or diagnosis but is presenting at [facility] [place] [place] ED on 05/07/2021 with new onset of psychotic since. She is presenting with thought disorder, paranoid ideation, bizarre behaviors, and decompensation in self care. She is not redirectable and is agitated, uncooperative during interview, demands to go home, no insight into why she is in the hospital. She has been losing weight and intrusive with her family and neighbors, has paranoid ideations that she has colon cancer or that her duaghters are missing. Apparently her family had her see a neurologist and obtained an MRI to r/o dementia due to family hx of Alzheimer's disorder and findings were negative. Also reportedly has a hx of untreated Graves disease? U/A does not show UTI. She lives alone and is presenting with poor insight/ judgment and a decline in functioning. She would benefit from increased observation during an inpatient admission to treat any underlying depression or organic causes of her psychotic sx. -Continue monitoring medically. Patient is currently medically cleared. -Patient cannot leave AGAINST MEDICAL ADVICE. -Discussed with Care Team, bed search commenced initial treatments ordered/ collateral history obtained Greater than 50% of the session was spent on counseling and/or coordination of care
--- NOTE | 2021-05-08 17:23 | PC.NURSE ---
Patient resting comfortably in bed aware of possible admission to S1 in am.
[2021-05-08 18:06] VITALS: BP 127/83; PULSE 94; RESP 16; TEMP 36.6; O2SAT 99
[2021-05-08 18:41] LABS: TSH reflex Free T4 1.61 uIU/mL (0.32-4.0)
[2021-05-09 03:06] VITALS: BP 146/83; PULSE 98; RESP 15; TEMP 36.4; O2SAT 96
--- NOTE | 2021-05-09 06:12 | PC.NURSE ---
Patient slept through the night, no distress observed/reported, VSS, behavior calm and quiet, thought process paranoid, affect flat, patient disposition is section 12 inpatient bed search, will continue to monitor.
--- NOTE | 2021-05-09 07:07 | PC.NURSE ---
Pt report received from Levar MORENO. Pt sleeping at this time, resp reg and even. 15 min checks maintained for safety. NAD. Awaiting admission to today.
[2021-05-09 08:06] LABS: Syphilis Screen Nonreactive (Nonreactive)
[2021-05-09 11:02] VITALS: BP 115/61; PULSE 84; RESP 16; TEMP 36.8; O2SAT 96
[2021-05-09 18:00] VITALS: BP 128/73; PULSE 98; RESP 14; TEMP 36.8; O2SAT 98
--- NOTE | 2021-05-09 18:09 | PC.NURSE ---
Addendum entered by Chelle Kaminski RN 05/09/21 18:44: Per patient's daughter patient is taking no medications at home. Addendum entered by Chelle Kaminski RN 05/09/21 18:42: Patient was seen at [facility] on 04/23/21 for an MRI. Also was seen at the [facility] on or around 04/20/21 - 04/21/21. Both were negative for evidence of dementia. Original Note: Patient arrived on unit from ED at approximately 1757 via WC dressed in hospital attire. Hygeine and grooming within normal limits. Patient appeared calm but was in fact extremely upset about being here. 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 Dr. Salgado signed 12B legal status. Patient presented to ED 05/07/21 with c/o constipation. KUB was done which showed stool throughout the colon. Patient also presented with thought disorder and paranoid ideation that she was going to from colon cancer. Patient also told daughter she was hearing voices. Patient lives at home with of 44 years , daughter and two grandchildren. 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 This is a new onset of psychosis for the patient beginning in March 2021. Since that time patient has had a cognitive evaluation and MRI both of which were negative for evidence of dementia. Patient is alert and oriented to person, place and time but not to situation. Per patients daughter she has decompensated resultling in weight loss (approx. 20 lbs.), increasingly disorganized behavior, and unusual requests followed by no memory of making requests.Patient is not cooperative with admission assessment. Vital signs were taken. All within normal limits. Patient oriented to unit and remains in room. When approached with any questions this hansard reporter recieves a blank stare and one word answers at best. Patient is irritable and dismissive. Patient has no history of acute psych symptoms or treatment. Patient has no significant medical history.
[2021-05-09 20:46] VITALS: BP 127/60; PULSE 78; RESP 18; TEMP 36.6; O2SAT 95
[2021-05-10 06:00] VITALS: BP 129/70; PULSE 82; RESP 16; TEMP 36.3; O2SAT 97
[2021-05-10 07:00] VITALS: BMI 18.4
[2021-05-10 07:59] LABS: Alanine Aminotransferase 25 U/L (0-31); Albumin Level 4.6 g/dL (3.5-5.0); Alkaline Phosphatase 105 U/L (39-117); Anion Gap 19 (12-20); Aspartate Amino Transferase 28 U/L (5-31); Bilirubin Total 1.9 mg/dL (0.0-1.0); Blood Urea Nitrogen 14 mg/dL (9-16); C Reactive Protein 0.21 mg/dL (< or = 0.50); Calcium 10.3 mg/dL (8.4-10.2); Carbon Dioxide 20 mmol/L (22-29); Chloride 103 mmol/L (96-108); Creatinine Clr Calc Pharmacy 55.9; Estimated Glomerular Filt Rate > 60; Glucose Fasting 63 mg/dL (60-99); Potassium 4.1 mmol/L (3.3-5.1); Rheumatoid Factor < 15.0 IU/mL (<15.0); Sodium 138 mmol/L (135-145); Total Protein 7.5 g/dL (6.5-8.0)
[2021-05-10 08:10] LABS: Vitamin D 25-OH Total 79.2 ng/mL (>30)
[2021-05-10 08:41] LABS: Erythrocyte Sedimentation Rate 6 MM/HR (0-20)
[2021-05-10 09:25] LABS: Folate 18.1 ng/mL (> or = 4.0); Vitamin B12 1008 pg/mL (200-900)
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
[2021-05-10 14:45] VITALS: BMI 18.4
--- NOTE | 2021-05-10 15:09 | MHC.CLN ---
Addendum entered by Ila Concepcion, RED 05/10/21 15:10: AGREE WITH PROVIDER'S ASSESSMENT BELOW Original Note: PT IS SEVERLY MALNOURISHED IN THE CONTEXT OF SOCIAL/ENVIRONMENTAL CIRCUMSTANCES PT HAS SIGNIFICANT 15% WT LOSS X 2 MONTHS AND <50% ENERGY INTAKE > 1 MONTH PT'S DAUGHTER REPORTED POOR PO AND 20 LB WT LOSS RECOMMEND ENSURE SUPPLEMENT BID TO INCREASE KCALS MONITOR PO INTAKE AND SUPPLEMENT ACCEPTANCE SEE ALSO CLINICAL NUTRITION ASSESSMENT [ End ]
[2021-05-10 18:00] VITALS: BP 139/74; PULSE 67; RESP 16; TEMP 36.1; O2SAT 97
[2021-05-11 06:00] VITALS: BP 140/76; PULSE 78; TEMP 37; O2SAT 98
--- NOTE | 2021-05-11 13:38 | HO.PSYCHPN ---
Subjective Subjective Date of Service: 05/11/21 Reason For Visit: Paranoia Subjective Notes: Conditional Voluntary Healthcare Proxy: Yes Guardianship: No Interim History: The nursing staff reported that the patient refused medications at night. She has been isolative and talking with a peer. She stated that she feels distressed at by her daughter that she was showing exit seeking behavior. On interview, the patient refused to participate in the interview. Since the patient has a healthcare proxy it was invoked Mental Status Exam Mental Status Exam Patient Appearance: Well Grooomed Patient Orientation: Person Level of Consciousness: Awake Patient Behavior: Cooperative Mood Description: Constricted Affect Description: Constricted Patient Cognition Impaired: No Ability to Follow Directions: Good Speech Pattern: Clear Hallucinations: Visual (Unable to fully assess but she has reported auditory and visual hallucinations) Delusions: Paranoid Ideation Thought Process: Illogical Thought Content: positive for Poverty of Content and positive for Preoccupation Judgement: Poor Diagnostics Vital Signs (24Hr): Vital Signs - 24 hr 05/10/21 18:00 Temperature 96.9 F Pulse Rate 67 Respiratory Rate 16 Blood Pressure 139/74 Pulse Oximetry 97 Body Mass Index 18.4 Labs Results: 05/07/21 19:27 05/10/21 07:12 Labs: Laboratory Results - last 48 hr 05/10/21 05/10/21 05/10/21 07:12 07:12 07:12 ESR 6 Sodium 138 Potassium 4.1 Chloride 103 Carbon Dioxide 20 L Anion Gap 19 BUN 14 Creatinine 0.75 Estim Creat Clear Calc 55.9 Estimated GFR > 60 Fasting Glucose 63 Calcium 10.3 H D Total Bilirubin 1.9 H AST 28 ALT 25 Alkaline Phosphatase 105 C-Reactive Protein 0.21 Total Protein 7.5 Albumin 4.6 Vitamin B12 1008 H 25-OH Vitamin D Total 79.2 Folate 18.1 Rheumatoid Factor < 15.0 Imaging Radiology Impressions: ITS Impressions KUB X-Ray 05/07/21 18:39 IMPRESSION: Essentially unremarkable bowel gas pattern with stool and air seen throughout the colon to the rectum. Medications Medications Current Medications Acetaminophen (Acetaminophen 325 Mg Tablet) 650 mg PO Q6H PRN PRN Reason: Headache/Pain Mild Scale (1-3) Al Hydroxide/Mg Hydroxide (Magnesium Hydrox/Alum Hydrox 30 Ml Oral.Susp) 30 ml PO Q6H PRN PRN Reason: Heartburn/Nausea Hydroxyzine HCl (Hydroxyzine Hcl 25 Mg Tablet) 25 mg PO BEDTIME PRN PRN Reason: Anxiety Magnesium Hydroxide (Milk Of Magnesia 30 Ml Oral.Susp) 30 ml PO DAILY PRN PRN Reason: Constipation Olanzapine (Olanzapine 2.5 Mg Tablet) 2.5 mg PO BEDTIME ARLENE Last Admin: 05/10/21 20:29 Dose: Not Given Documented by: Allergies Allergies Allergy/AdvReac Type Severity Reaction Status Date / Time codeine [CODEINE] AdvReac Mild NAUSEA Verified 05/07/21 18:21 Assessment & Plan Assessment & Plan (1) Psychosis: Status: Acute Code(s): F29 - Unspecified 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 She is unable to contract for safety, she is uncooperative and according to her daughter she has a healthcare proxy. Plan. 1. Continue Zyprexa 2.5 mg p.o. q.h.s. 2. Gather collateral information. 3. Considers Section 7 and 8 on Friday Greater than 50% of the session was spent on counseling and/or coordination of care Reason for contiued inpatient stay Substantial Risk for: inability to function, rapid decompensation and med/psych decompensation
--- NOTE | 2021-05-11 13:55 | MHC.CLN ---
F/U NURSE REPORTED THAT PATIENT ATE WELL AT LUNCH TODAY. CONTINUE TO FOLLOW.
[2021-05-11 20:27] VITALS: BP 132/74; PULSE 102; RESP 17; TEMP 36.8; O2SAT 98
[2021-05-12 06:00] VITALS: BP 132/78; TEMP 36.6; O2SAT 96
--- NOTE | 2021-05-12 12:47 | HO.PSYCHPN ---
Subjective Subjective Date of Service: 05/12/21 Reason For Visit: Paranoia Interim History: pt is found seated in the common areas. she smirks as MD introduces himself; she does not respond or engage with MD other than to decline any offer of interview or request for her to make any needs known to MD. per staff, pr refusing HS meds. remains paranoid, experiencing AVH. Mental Status Exam Mental Status Exam Patient Appearance: Well Grooomed Patient Orientation: Person Level of Consciousness: Awake Patient Behavior: Uncooperative Mood Description: Constricted Affect Description: Constricted Speech Pattern: Clear Diagnostics Vital Signs (24Hr): Vital Signs - 24 hr 05/11/21 20:27 Temperature 98.3 F Pulse Rate 102 H Respiratory Rate 17 Blood Pressure 132/74 Pulse Oximetry 98 Body Mass Index 18.4 Labs Results: 05/07/21 19:27 05/10/21 07:12 Imaging Radiology Impressions: ITS Impressions KUB X-Ray 05/07/21 18:39 IMPRESSION: Essentially unremarkable bowel gas pattern with stool and air seen throughout the colon to the rectum. Medications Medications Current Medications Acetaminophen (Acetaminophen 325 Mg Tablet) 650 mg PO Q6H PRN PRN Reason: Headache/Pain Mild Scale (1-3) Al Hydroxide/Mg Hydroxide (Magnesium Hydrox/Alum Hydrox 30 Ml Oral.Susp) 30 ml PO Q6H PRN PRN Reason: Heartburn/Nausea Hydroxyzine HCl (Hydroxyzine Hcl 25 Mg Tablet) 25 mg PO BEDTIME PRN PRN Reason: Anxiety Magnesium Hydroxide (Milk Of Magnesia 30 Ml Oral.Susp) 30 ml PO DAILY PRN PRN Reason: Constipation Olanzapine (Olanzapine 2.5 Mg Tablet) 2.5 mg PO BEDTIME ARLENE Last Admin: 05/11/21 20:41 Dose: Not Given Documented by: Allergies Allergies Allergy/AdvReac Type Severity Reaction Status Date / Time codeine [CODEINE] AdvReac Mild NAUSEA Verified 05/07/21 18:21 Assessment & Plan Assessment & Plan (1) Psychosis: Status: Acute Code(s): F29 - Unspecified 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 She is unable to contract for safety, she is uncooperative and according to her daughter she has a healthcare proxy. Plan. 1. Continue Zyprexa 2.5 mg p.o. q.h.s. - pt is refusing. 2. Gather collateral information. 3. Considers Section 7 and 8 on Friday Greater than 50% of the session was spent on counseling and/or coordination of care Reason for contiued inpatient stay Substantial Risk for: inability to function
[2021-05-12 20:01] VITALS: BP 105/55; PULSE 70; RESP 17; TEMP 36.8; O2SAT 95
[2021-05-12 20:26] VITALS: BP 129/60; PULSE 75; RESP 16; TEMP 36.8; O2SAT 98
[2021-05-13 09:06] VITALS: BP 110/58; PULSE 105; RESP 18; TEMP 36.9; O2SAT 96
--- NOTE | 2021-05-13 13:52 | HO.PSYCHPN ---
Subjective Subjective Date of Service: 05/13/21 Reason For Visit: Paranoia Interim History: pt found sitting on her bed. she did not answer when MD knocked on the door. she had delayed responses and appeared hesitant and distracted. she stated to MD, i'm fine, thanks, declining interview. MD had to repeat his query as to her well-being and if there were anything she needed a couple of times before she responded; she appeared to have a difficult time registering. per staff, isolative, paranoid. refused zyprexa last night, appeared to have slept well. Mental Status Exam Mental Status Exam Patient Appearance: Well Grooomed Patient Orientation: Person Level of Consciousness: Awake Patient Behavior: Uncooperative Mood Description: Constricted Affect Description: Constricted Speech Pattern: Clear Diagnostics Vital Signs (24Hr): Vital Signs - 24 hr 05/12/21 20:01 05/12/21 20:26 05/13/21 09:06 Temperature 98.3 F 98.3 F 98.4 F Pulse Rate 70 75 105 H Respiratory Rate 17 16 18 Blood Pressure 105/55 L 129/60 110/58 L Pulse Oximetry 95 98 96 Body Mass Index 18.4 Labs Results: 05/07/21 19:27 05/10/21 07:12 Imaging Radiology Impressions: ITS Impressions KUB X-Ray 05/07/21 18:39 IMPRESSION: Essentially unremarkable bowel gas pattern with stool and air seen throughout the colon to the rectum. Medications Medications Current Medications Acetaminophen (Acetaminophen 325 Mg Tablet) 650 mg PO Q6H PRN PRN Reason: Headache/Pain Mild Scale (1-3) Al Hydroxide/Mg Hydroxide (Magnesium Hydrox/Alum Hydrox 30 Ml Oral.Susp) 30 ml PO Q6H PRN PRN Reason: Heartburn/Nausea Hydroxyzine HCl (Hydroxyzine Hcl 25 Mg Tablet) 25 mg PO BEDTIME PRN PRN Reason: Anxiety Magnesium Hydroxide (Milk Of Magnesia 30 Ml Oral.Susp) 30 ml PO DAILY PRN PRN Reason: Constipation Olanzapine (Olanzapine 2.5 Mg Tablet) 2.5 mg PO BEDTIME ARLENE Last Admin: 05/12/21 20:17 Dose: Not Given Documented by: Allergies Allergies Allergy/AdvReac Type Severity Reaction Status Date / Time codeine [CODEINE] AdvReac Mild NAUSEA Verified 05/07/21 18:21 Assessment & Plan Assessment & Plan (1) Psychosis: Status: Acute Code(s): F29 - Unspecified 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 She is unable to contract for safety, she is uncooperative and according to her daughter she has a healthcare proxy. Plan. 1. Continue Zyprexa 2.5 mg p.o. q.h.s. - pt is refusing. 2. Gather collateral information. 3. Considers Section 7 and 8 on Friday Greater than 50% of the session was spent on counseling and/or coordination of care Reason for contiued inpatient stay Substantial Risk for: inability to function and med/psych decompensation
[2021-05-13 18:00] VITALS: BP 136/77; PULSE 100; RESP 18; TEMP 36.2; O2SAT 97
[2021-05-13 21:52] LABS: Anti Nuclear Antibody Screen NEGATIVE (NEGATIVE)
--- NOTE | 2021-05-14 11:34 | HO.PSYCHPN ---
Subjective Subjective Date of Service: 05/14/21 Reason For Visit: Paranoia Interim History: The nursing staff reported that the patient has refused Zyprexa and other medications. She denied the report of her daughter, refused to be engaged. Review of Systems Acute medical concerns: Yes UTI treated Medical Review of Systems: unchanged Mental Status Exam Mental Status Exam Patient Appearance: Well Grooomed Patient Orientation: Person Level of Consciousness: Awake and Appropriate Patient Behavior: Guarded and Suspicious Mood Description: Constricted Affect Description: Constricted Ability to Follow Directions: Poor Speech Pattern: Clear Hallucinations: Auditory (as per daughter's report) Delusions: Paranoid Ideation Thought Process: Evasive Thought Content: positive for Circumstantial, positive for Perseveration and positive for Poverty of Content Judgement: Poor Diagnostics Vital Signs (24Hr): Vital Signs - 24 hr 05/13/21 18:00 Temperature 97.2 F Pulse Rate 100 Respiratory Rate 18 Blood Pressure 136/77 Pulse Oximetry 97 Body Mass Index 18.4 Labs Results: 05/07/21 19:27 05/10/21 07:12 Labs: Laboratory Results - last 48 hr 05/10/21 07:12 MICHELLE Screen NEGATIVE MICHELLE Titer TNP MICHELLE Titer 2 TNP MICHELLE Titer 3 TNP MICHELLE Pattern TNP MICHELLE Pattern 2 TNP MICHELLE Pattern 3 TNP Imaging Radiology Impressions: ITS Impressions KUB X-Ray 05/07/21 18:39 IMPRESSION: Essentially unremarkable bowel gas pattern with stool and air seen throughout the colon to the rectum. Medications Medications Current Medications Acetaminophen (Acetaminophen 325 Mg Tablet) 650 mg PO Q6H PRN PRN Reason: Headache/Pain Mild Scale (1-3) Al Hydroxide/Mg Hydroxide (Magnesium Hydrox/Alum Hydrox 30 Ml Oral.Susp) 30 ml PO Q6H PRN PRN Reason: Heartburn/Nausea Hydroxyzine HCl (Hydroxyzine Hcl 25 Mg Tablet) 25 mg PO BEDTIME PRN PRN Reason: Anxiety Magnesium Hydroxide (Milk Of Magnesia 30 Ml Oral.Susp) 30 ml PO DAILY PRN PRN Reason: Constipation Olanzapine (Olanzapine 2.5 Mg Tablet) 2.5 mg PO BEDTIME ARLENE Last Admin: 05/13/21 19:59 Dose: Not Given Documented by: Allergies Allergies Allergy/AdvReac Type Severity Reaction Status Date / Time codeine [CODEINE] AdvReac Mild NAUSEA Verified 05/07/21 18:21 Assessment & Plan Assessment & Plan (1) Psychosis: Status: Acute Code(s): F29 - Unspecified 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 She is unable to contract for safety, she is uncooperative and according to her daughter she has a healthcare proxy. Plan. 1. Continue Zyprexa 2.5 mg p.o. q.h.s. - pt is refusing. 2. Gather collateral information. 3. Section 7 and 8 on Friday Greater than 50% of the session was spent on counseling and/or coordination of care Reason for contiued inpatient stay Substantial Risk for: inability to function, rapid decompensation and med/psych decompensation
--- NOTE | 2021-05-14 15:09 | MHC.CLN ---
F/U STAFF REPORTS THAT PATIENT ATE ONLY BITES TODAY. COULD NOT CONFIRM IF TOOK ENSURE, CONTINUE TO FOLLOW INTAKE.
[2021-05-14 18:00] VITALS: BP 125/72; PULSE 90; RESP 17; TEMP 37.1; O2SAT 96
[2021-05-14] MEDS: OLANZapine 2.5 MG TABLET PO (20:35)
[2021-05-15 06:00] VITALS: BP 115/68; PULSE 104; RESP 16; TEMP 36.1; O2SAT 100
[2021-05-15 06:17] LABS: MANUAL DIFF FLAG NO
[2021-05-15 06:33] LABS: Anion Gap 11 (12-20); Blood Urea Nitrogen 16 mg/dL (9-16); Calcium 9.1 mg/dL (8.4-10.2); Carbon Dioxide 28 mmol/L (22-29); Chloride 109 mmol/L (96-108); Creatinine Clr Calc Pharmacy 57.5; Estimated Glomerular Filt Rate > 60; Glucose Random 92 mg/dL (60-115); Potassium 3.7 mmol/L (3.3-5.1); Sodium 144 mmol/L (135-145)
[2021-05-15 06:57] LABS: Basophils Percent Auto 0.5 % (0-2); Eosinophils Absolute Auto 0.1 X10*3/uL (0.0-0.4); Eosinophils Percent Auto 1.7 % (0-4); Imm Gran Abs Auto 0.01 X10*3/uL (0.00-0.03); Imm Gran Pct Auto 0.2 % (0.0-0.4); Lymphocytes Absolute Auto 0.9 X10*3/uL (1.2-4.9); Lymphocytes Percent Auto 22.8 % (20-40); Mean Corpuscular HGB Conc 33.3 g/dl (31.0-35.0); Mean Corpuscular Hemoglobin 31.6 pg (27.0-33.0); Mean Corpuscular Volume 94.7 fL (80-98); Mean Platelet Volume 10.4 fL (9.4-12.3); Monocytes Absolute Auto 0.4 X10*3/uL (0.1-1.2); Monocytes Percent Auto 10.1 % (2-11); Neutrophils Absolute Auto 2.6 X10*3/uL (2.0-8.3); Neutrophils Percent Auto 64.7 % (45-73); Platelet Count 155 X10*3/uL (160-400); Red Blood Count 4.12 X10*6/uL (4.20-5.50); Red Cell Distribution Width 13.6 % (11.0-16.0)
--- NOTE | 2021-05-15 15:01 | HO.PSYCHPN ---
Subjective Subjective Date of Service: 05/15/21 Reason For Visit: Paranoia Subjective Notes: Section 7 (Sections 7 and 8 filed yesterday) and Section 8 Interim History: The nursing staff reported that the patient remains most of the time in his room, she has minimal interaction. She has eaten very little food while she is in the unit. We had a family meeting and the daughter reported the psychotic symptoms and the patient refused to participate in the meeting. She stated that she wanted only a airport representative and she is not going to talk anymore she also stated that she is not going to take any medications. Her daughter reported that she has psychotic and that is not her baseline. Review of Systems Acute medical concerns: No Medical Review of Systems: unchanged Mental Status Exam Mental Status Exam Patient Appearance: Well Grooomed Patient Orientation: Person Level of Consciousness: Awake Patient Behavior: Cooperative Mood Description: Blunted Affect Description: Constricted Patient Cognition Impaired: Yes Ability to Follow Directions: Poor Speech Pattern: Clear Thought Process: Illogical Thought Content: positive for Preoccupation Judgement: Poor Diagnostics Vital Signs (24Hr): Vital Signs - 24 hr 05/14/21 18:00 05/15/21 06:00 Temperature 98.8 F 97.0 F Pulse Rate 90 104 H Respiratory Rate 17 16 Blood Pressure 125/72 115/68 Pulse Oximetry 96 100 Body Mass Index 18.4 Labs Results: 05/15/21 06:11 05/15/21 06:11 Labs: Laboratory Results - last 48 hr 05/10/21 05/15/21 05/15/21 07:12 06:11 06:11 WBC 4.0 L RBC 4.12 L Hgb 13.0 Hct 39.0 MCV 94.7 MCH 31.6 MCHC 33.3 RDW 13.6 Plt Count 155 L MPV 10.4 Immature Gran % (Auto) 0.2 Neut % (Auto) 64.7 Lymph % (Auto) 22.8 [place] % (Auto) 10.1 Eos % (Auto) 1.7 Baso % (Auto) 0.5 Lymph # (Auto) 0.9 L [place] # (Auto) 0.4 Eos # (Auto) 0.1 Baso # (Auto) 0.0 Abs Immat Gran (auto) 0.01 Absolute Neuts (auto) 2.6 Absolute Nucleated RBC 0.000 Nucleated RBC % (auto) 0.0 Sodium 144 Potassium 3.7 Chloride 109 H Carbon Dioxide 28 Anion Gap 11 L BUN 16 Creatinine 0.65 Estim Creat Clear Calc 57.5 Estimated GFR > 60 Random Glucose 92 Calcium 9.1 D MICHELLE Screen NEGATIVE MICHELLE Titer TNP MICHELLE Titer 2 TNP MICHELLE Titer 3 TNP MICHELLE Pattern TNP MICHELLE Pattern 2 TNP MICHELLE Pattern 3 TNP Imaging Radiology Impressions: ITS Impressions KUB X-Ray 05/07/21 18:39 IMPRESSION: Essentially unremarkable bowel gas pattern with stool and air seen throughout the colon to the rectum. Medications Medications Current Medications Acetaminophen (Acetaminophen 325 Mg Tablet) 650 mg PO Q6H PRN PRN Reason: Headache/Pain Mild Scale (1-3) Al Hydroxide/Mg Hydroxide (Magnesium Hydrox/Alum Hydrox 30 Ml Oral.Susp) 30 ml PO Q6H PRN PRN Reason: Heartburn/Nausea Hydroxyzine HCl (Hydroxyzine Hcl 25 Mg Tablet) 25 mg PO BEDTIME PRN PRN Reason: Anxiety Magnesium Hydroxide (Milk Of Magnesia 30 Ml Oral.Susp) 30 ml PO DAILY PRN PRN Reason: Constipation Olanzapine (Olanzapine 2.5 Mg Tablet) 2.5 mg PO BEDTIME ARLENE Last Admin: 05/14/21 20:35 Dose: 2.5 mg Documented by: Allergies Allergies Allergy/AdvReac Type Severity Reaction Status Date / Time codeine [CODEINE] AdvReac Mild NAUSEA Verified 05/07/21 18:21 Assessment & Plan Assessment & Plan (1) Psychosis: Status: Acute Code(s): F29 - Unspecified 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 She is unable to contract for safety, she is uncooperative and according to her daughter she has a healthcare proxy. Plan. 1. Continue Zyprexa 2.5 mg p.o. q.h.s. - pt is refusing. 2. Wait for court for Section 7 and 8. 3. MRI ordered. 4. Waiting for collateral information from [facility]. Greater than 50% of the session was spent on counseling and/or coordination of care Reason for contiued inpatient stay Substantial Risk for: inability to function, rapid decompensation and med/psych decompensation
[2021-05-15 18:00] VITALS: BP 121/73; PULSE 101; RESP 16; TEMP 36.1; O2SAT 96
[2021-05-15 18:12] LABS: Appearance Urine HAZY; Color Urine DK YELLOW; Glucose Urine UA NEG (NEG); Leukocyte Esterase Urine 1+ (NEG); Nitrite Urine NEG (NEG); Specific Gravity - Urine >= 1.030 (1.005-1.025); UACC Culture Trigger YES; Urine Blood 1+ (NEG); Urine Ketones 5 MG/DL (NEG); Urine Protein NEG (NEG-TRACE)
[2021-05-15 18:18] LABS: Mucus Urine 3+ /LPF; Squamous Epithelial Cell Urine 2+ /LPF
[2021-05-15 18:19] LABS: Bacteria Urine TRACE /LPF; UACC CULT YES
[2021-05-15] MEDS: OLANZapine 2.5 MG TABLET PO (20:26)
[2021-05-16 09:25] VITALS: BP 105/58; PULSE 103; RESP 16; TEMP 36.7; O2SAT 98
--- NOTE | 2021-05-16 10:02 | MHC.CLN ---
F/U PATIENT STATED NO WHEN ASKED IF WANTED ENSURE. CONTINUES WITH USUALLY POOR INTAKE. OFFERED PUDDING/OTHER FOODS WITH NO REPLY. DISCONTINUING ENSURE SUPPLEMENT PER PATIENT PREFERENCE.
--- NOTE | 2021-05-16 10:55 | P.PNPSI_ITS ---
Subjective Subjective Date of Service: 05/16/21 Reason For Visit: Paranoia Subjective Notes: Section 7 and Section 8 Interim History: The nursing staff reports the patient is pacing the whole week, she is having more verbal but she refused to have the MRI yesterday. On interview, the patient refused to engage and she wants to talk with the sales support advisor. On the UA there is no evidence of an active UTI. We got to the the results of the MRI from [facility] 1 almost 14 under were no active lesions or new strokes Review of Systems Acute medical concerns: No Medical Review of Systems: unchanged Mental Status Exam Mental Status Exam Patient Appearance: Well Grooomed Patient Orientation: Person Level of Consciousness: Awake Patient Behavior: Guarded Mood Description: Constricted Affect Description: Constricted Patient Cognition Impaired: Yes Ability to Follow Directions: Poor Speech Pattern: Clear Memory Description: Intact Delusions: Paranoid Ideation Thought Process: Evasive Thought Content: positive for Perseveration and positive for Poverty of Content Judgement: Poor Diagnostics Vital Signs (24Hr): Vital Signs - 24 hr 05/15/21 18:00 05/16/21 09:25 Temperature 97.0 F 98.0 F Pulse Rate 101 H 103 H Respiratory Rate 16 16 Blood Pressure 121/73 105/58 L Pulse Oximetry 96 98 Body Mass Index 18.4 Labs Results: 05/15/21 06:11 05/15/21 06:11 Labs: Laboratory Results - last 48 hr 05/10/21 05/15/21 05/15/21 07:12 06:11 06:11 WBC 4.0 L RBC 4.12 L Hgb 13.0 Hct 39.0 MCV 94.7 MCH 31.6 MCHC 33.3 RDW 13.6 Plt Count 155 L MPV 10.4 Immature Gran % (Auto) 0.2 Neut % (Auto) 64.7 Lymph % (Auto) 22.8 [place] % (Auto) 10.1 Eos % (Auto) 1.7 Baso % (Auto) 0.5 Lymph # (Auto) 0.9 L [place] # (Auto) 0.4 Eos # (Auto) 0.1 Baso # (Auto) 0.0 Abs Immat Gran (auto) 0.01 Absolute Neuts (auto) 2.6 Absolute Nucleated RBC 0.000 Nucleated RBC % (auto) 0.0 Sodium 144 Potassium 3.7 Chloride 109 H Carbon Dioxide 28 Anion Gap 11 L BUN 16 Creatinine 0.65 Estim Creat Clear Calc 57.5 Estimated GFR > 60 Random Glucose 92 Calcium 9.1 D Urine Color Urine Appearance Urine pH Ur Specific [place] Urine Protein Urine Glucose (UA) Urine Ketones Urine Blood Urine Nitrite Ur Leukocyte Esterase Urine RBC Urine WBC Ur Squamous Epith Cells Urine Bacteria Urine Mucus MICHELLE Titer TNP MICHELLE Titer 2 TNP MICHELLE Titer 3 TNP MICHELLE Pattern TNP MICHELLE Pattern 2 TNP MICHELLE Pattern 3 TNP 05/15/21 15:00 WBC RBC Hgb Hct MCV MCH MCHC RDW Plt Count MPV Immature Gran % (Auto) Neut % (Auto) Lymph % (Auto) [place] % (Auto) Eos % (Auto) Baso % (Auto) Lymph # (Auto) [place] # (Auto) Eos # (Auto) Baso # (Auto) Abs Immat Gran (auto) Absolute Neuts (auto) Absolute Nucleated RBC Nucleated RBC % (auto) Sodium Potassium Chloride Carbon Dioxide Anion Gap BUN Creatinine Estim Creat Clear Calc Estimated GFR Random Glucose Calcium Urine Color DK YELLOW Urine Appearance HAZY Urine pH 6.0 Ur Specific [place] >= 1.030 H Urine Protein NEG Urine Glucose (UA) NEG Urine Ketones 5 Urine Blood 1+ H Urine Nitrite NEG Ur Leukocyte Esterase 1+ H Urine RBC 5-9 H Urine WBC 1-4 Ur Squamous Epith Cells 2+ Urine Bacteria TRACE Urine Mucus 3+ MICHELLE Titer MICHELLE Titer 2 MICHELLE Titer 3 MICHELLE Pattern MICHELLE Pattern 2 MICHELLE Pattern 3 Imaging Radiology Impressions: ITS Impressions KUB X-Ray 05/07/21 18:39 IMPRESSION: Essentially unremarkable bowel gas pattern with stool and air seen throughout the colon to the rectum. Medications Medications Current Medications Acetaminophen (Acetaminophen 325 Mg Tablet) 650 mg PO Q6H PRN PRN Reason: Headache/Pain Mild Scale (1-3) Al Hydroxide/Mg Hydroxide (Magnesium Hydrox/Alum Hydrox 30 Ml Oral.Susp) 30 ml PO Q6H PRN PRN Reason: Heartburn/Nausea Hydroxyzine HCl (Hydroxyzine Hcl 25 Mg Tablet) 25 mg PO BEDTIME PRN PRN Reason: Anxiety Magnesium Hydroxide (Milk Of Magnesia 30 Ml Oral.Susp) 30 ml PO DAILY PRN PRN Reason: Constipation Olanzapine (Olanzapine Odt 10 Mg Tab.Rapdis) 5 mg TRANSLINGU BEDTIME ARLENE Allergies Allergies Allergy/AdvReac Type Severity Reaction Status Date / Time codeine [CODEINE] AdvReac Mild NAUSEA Verified 05/07/21 18:21 Assessment & Plan Assessment & Plan (1) Psychosis: Status: Acute Code(s): F29 - Unspecified psychosis not due to a substance or known physiological condition Assessment and Plan: The patient is an elderly female, with over with no prior psychiatric history with a recent onset of psychotic symptoms elicited by auditory rob lucinations, but with disorganized behavior and dysphoric mood. She is unable to contract for safety, she is uncooperative and according to her daughter she has a healthcare proxy. Plan. 1. Change Zyprexa to Zydis to assure compliance 2. Wait for court for Section 7 and 8. 3. MRI ordered. 4. Waiting for collateral information from [facility]. Greater than 50% of the session was spent on counseling and/or coordination of care Reason for contiued inpatient stay Substantial Risk for: inability to function, rapid decompensation and med/psych decompensation
[2021-05-16 19:47] VITALS: BP 100/60; PULSE 85; RESP 17; TEMP 36.6; O2SAT 97
[2021-05-16] MEDS: OLANZapine ODT 10 MG TAB.RAPDIS 5 MG TRANSLINGU (20:11)
[2021-05-17 06:00] VITALS: PULSE 102; RESP 16; TEMP 36.5; O2SAT 96
[2021-05-17 07:00] VITALS: BMI 18.9
--- NOTE | 2021-05-17 11:20 | HO.PSYCHPN ---
Subjective Subjective Date of Service: 05/17/21 Reason For Visit: Paranoia Subjective Notes: Section 7 and Section 8 Interim History: The nursing staff reported that she has been taking Zyprexa at night. She looks more talkative but still she is confused. The social worker delinquency prevention has talked with her daughter and apparently the patient apologized to her daughter about her behavior on the family meeting yesterday. On interview the patient refused to engage in any conversation with this prescriber. We change the Zyprexa Zydis 5 mg at night to assure compliance Mental Status Exam Mental Status Exam Patient Appearance: Well Grooomed Patient Orientation: Person Level of Consciousness: Awake Patient Behavior: Passive and Avoidant Mood Description: Blunted Affect Description: Constricted Patient Cognition Impaired: Yes Ability to Follow Directions: Fair Speech Pattern: Appropriate Memory Description: Intact Hallucinations: None Delusions: Paranoid Ideation Thought Process: Slowed Thinking Thought Content: positive for Thought Blocking Judgement: Poor Diagnostics Vital Signs (24Hr): Vital Signs - 24 hr 05/16/21 19:47 05/17/21 06:00 Temperature 97.9 F 97.7 F Pulse Rate 85 102 H Respiratory Rate 17 16 Blood Pressure 100/60 Pulse Oximetry 97 96 Body Mass Index 18.9 Labs Results: 05/15/21 06:11 05/15/21 06:11 Labs: Laboratory Results - last 48 hr 05/15/21 15:00 Urine Color DK YELLOW Urine Appearance HAZY Urine pH 6.0 Ur Specific [place] >= 1.030 H Urine Protein NEG Urine Glucose (UA) NEG Urine Ketones 5 Urine Blood 1+ H Urine Nitrite NEG Ur Leukocyte Esterase 1+ H Urine RBC 5-9 H Urine WBC 1-4 Ur Squamous Epith Cells 2+ Urine Bacteria TRACE Urine Mucus 3+ Imaging Radiology Impressions: ITS Impressions KUB X-Ray 05/07/21 18:39 IMPRESSION: Essentially unremarkable bowel gas pattern with stool and air seen throughout the colon to the rectum. Medications Medications Current Medications Acetaminophen (Acetaminophen 325 Mg Tablet) 650 mg PO Q6H PRN PRN Reason: Headache/Pain Mild Scale (1-3) Al Hydroxide/Mg Hydroxide (Magnesium Hydrox/Alum Hydrox 30 Ml Oral.Susp) 30 ml PO Q6H PRN PRN Reason: Heartburn/Nausea Hydroxyzine HCl (Hydroxyzine Hcl 25 Mg Tablet) 25 mg PO BEDTIME PRN PRN Reason: Anxiety Magnesium Hydroxide (Milk Of Magnesia 30 Ml Oral.Susp) 30 ml PO DAILY PRN PRN Reason: Constipation Olanzapine (Olanzapine Odt 10 Mg Tab.Rapdis) 5 mg TRANSLINGU BEDTIME ARLENE Last Admin: 05/16/21 20:11 Dose: 5 mg Documented by: Allergies Allergies Allergy/AdvReac Type Severity Reaction Status Date / Time codeine [CODEINE] AdvReac Mild NAUSEA Verified 05/07/21 18:21 Assessment & Plan Assessment & Plan (1) Psychosis: Status: Acute Code(s): F29 - Unspecified 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 She is unable to contract for safety, she is uncooperative and according to her daughter she has a healthcare proxy. Plan. 1. Change Zyprexa to Zydis to assure compliance 2. Wait for court for Section 7 and 8. 3. MRI ordered but the patient refuse the procedure 4. We received the MRI results from [facility] without new pathology Greater than 50% of the session was spent on counseling and/or coordination of care Reason for contiued inpatient stay Substantial Risk for: inability to function, rapid decompensation and med/psych decompensation
[2021-05-17 18:00] VITALS: BP 125/66; PULSE 95; RESP 16; TEMP 36.1; O2SAT 98
[2021-05-17] MEDS: OLANZapine ODT 10 MG TAB.RAPDIS 5 MG TRANSLINGU (20:28)
[2021-05-18 08:00] VITALS: BP 100/57; PULSE 97; TEMP 37; O2SAT 98
--- NOTE | 2021-05-18 09:56 | MHC.CLN ---
F/U SHOWS MODERATE, FAVORABLE WEIGHT GAIN X 1 WEEK, +2.7%. GOOD INTAKE AT BREAKFAST REPORTED THIS MORNING. NO ADDITIONAL NUTRITION INTERVENTIONS AT THIS TIME.
--- NOTE | 2021-05-18 17:34 | P.PNPSI_ITS ---
Subjective Subjective Date of Service: 05/18/21 Reason For Visit: Paranoia Subjective Notes: Section 7 Interim History: I evaluated the pt this evening and upon interview she reports Leticia hdz. Has been adherent with zydis, currently denies side effects. Says she is sleeping reasonably well and her appetite is good. Says she is keeping herself busy, I do a lot of walking, energy is pretty good. I asked if she had any new thoughts on why she is in the hospital, as she initially presented as withdrawn and with poor insight, says Leticia dano pass on that question. Says she feels safe, denies SI/SIB. Medication Compliance: Yes Side effects from medications: No Attending Groups: No Mental Status Exam Mental Status Exam Narrative: Patient Appearance:?Well Grooomed Patient Orientation:?Person Level of Consciousness:?Awake Patient Behavior:?Passive and Avoidant Mood Description:?Blunted Affect Description:?Constricted Patient Cognition Impaired:?Yes Ability to Follow Directions:?Fair Speech Pattern:?Appropriate Memory Description:?Intact Hallucinations:?None Delusions:?Paranoid Ideation Thought Process:?Slowed Thinking Thought Content:?positive for Thought Blocking Judgement:?Poor Diagnostics Vital Signs (24Hr): Vital Signs - 24 hr 05/17/21 18:00 05/18/21 08:00 Temperature 97.0 F 98.6 F Pulse Rate 95 97 Respiratory Rate 16 Blood Pressure 125/66 100/57 L Pulse Oximetry 98 98 Body Mass Index 18.9 Labs Results: 05/15/21 06:11 05/15/21 06:11 Imaging Radiology Impressions: ITS Impressions KUB X-Ray 05/07/21 18:39 IMPRESSION: Essentially unremarkable bowel gas pattern with stool and air seen throughout the colon to the rectum. Medications Medications Current Medications Acetaminophen (Acetaminophen 325 Mg Tablet) 650 mg PO Q6H PRN PRN Reason: Headache/Pain Mild Scale (1-3) Al Hydroxide/Mg Hydroxide (Magnesium Hydrox/Alum Hydrox 30 Ml Oral.Susp) 30 ml PO Q6H PRN PRN Reason: Heartburn/Nausea Hydroxyzine HCl (Hydroxyzine Hcl 25 Mg Tablet) 25 mg PO BEDTIME PRN PRN Reason: Anxiety Magnesium Hydroxide (Milk Of Magnesia 30 Ml Oral.Susp) 30 ml PO DAILY PRN PRN Reason: Constipation Olanzapine (Olanzapine Odt 10 Mg Tab.Rapdis) 5 mg TRANSLINGU BEDTIME ARLENE Last Admin: 05/17/21 20:28 Dose: 5 mg Documented by: Allergies Allergies Allergy/AdvReac Type Severity Reaction Status Date / Time codeine [CODEINE] AdvReac Mild NAUSEA Verified 05/07/21 18:21 Assessment & Plan Assessment & Plan (1) Psychosis: Status: Acute Code(s): F29 - Unspecified 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 She is unable to contract for safety, she is uncooperative and according to her daughter she has a healthcare proxy. Plan. 1. Change Zyprexa to Zydis to assure compliance 2. Wait for court for Section 7 and 8. 3. MRI ordered but the patient refuse the procedure 4. We received the MRI results from [facility] without new pathology Greater than 50% of the session was spent on counseling and/or coordination of care Reason for contiued inpatient stay Substantial Risk for: inability to function, rapid decompensation and med/psych decompensation
[2021-05-18 18:00] VITALS: BP 106/59; PULSE 76; RESP 20; TEMP 36.6; O2SAT 98
[2021-05-18] MEDS: OLANZapine ODT 10 MG TAB.RAPDIS 5 MG TRANSLINGU (20:08)
[2021-05-19 08:44] VITALS: BP 109/67; PULSE 96; RESP 14; TEMP 36.9; O2SAT 98
[2021-05-19 15:54] LABS: Appearance Urine CLEAR; Color Urine YELLOW; Glucose Urine UA NEG (NEG); Leukocyte Esterase Urine 2+ (NEG); Nitrite Urine NEG (NEG); PH 5.5 (5.0-8.0); Specific Gravity - Urine 1.025 (1.005-1.025); UACC Culture Trigger YES; Urine Blood NEG (NEG); Urine Ketones NEG (NEG); Urine Protein NEG (NEG-TRACE)
[2021-05-19 16:11] LABS: Amorphous Sediment Urine TRACE /LPF; RBC Urine 0-2 /HPF (0); Squamous Epithelial Cell Urine 2+ /LPF
[2021-05-19 17:02] LABS: Lyme Abs Screen <0.90 index
[2021-05-19 18:00] VITALS: BP 111/53; PULSE 91; RESP 18; TEMP 37.1; O2SAT 96
[2021-05-19] MEDS: OLANZapine ODT 10 MG TAB.RAPDIS 5 MG TRANSLINGU (20:13)
--- NOTE | 2021-05-19 21:15 | HO.PSYCHPN ---
Subjective Subjective Date of Service: 05/19/21 Reason For Visit: Paranoia Interim History: pt guarded, internally preoccupied, difficult to engage. Pt says i'm fine. When asked why she came to hospital she says i'll pass on that question. When customs entry writer asked why she says because I choose to. Pt appears internally preoccupied but denies any AVH or confusion. She denies any SI. Mental Status Exam Mental Status Exam Narrative: Patient Appearance:?Well Grooomed Patient Orientation:?Person Level of Consciousness:?Awake Patient Behavior:?guarded Mood Description:? fine Affect Description:?Constricted Patient Cognition Impaired:?Yes Ability to Follow Directions:?Fair Speech Pattern:?Appropriate Memory Description:?Intact Hallucinations:?denies Delusions:?Paranoid Ideation Thought Process:?Slowed Thinking Thought Content:?positive for Thought Blocking Judgment:?Poor Diagnostics Vital Signs (24Hr): Vital Signs - 24 hr 05/19/21 08:44 05/19/21 18:00 Temperature 98.4 F 98.8 F Pulse Rate 96 91 Respiratory Rate 14 18 Blood Pressure 109/67 111/53 L Pulse Oximetry 98 96 Body Mass Index 18.9 Labs Results: 05/15/21 06:11 05/15/21 06:11 Labs: Laboratory Results - last 48 hr 05/18/21 05/19/21 14:15 15:30 Urine Color YELLOW Urine Appearance CLEAR Urine pH 5.5 Ur Specific [place] 1.025 Urine Protein NEG Urine Glucose (UA) NEG Urine Ketones NEG Urine Blood NEG Urine Nitrite NEG Ur Leukocyte Esterase 2+ H Urine RBC 0-2 Urine WBC 5-9 H Ur Squamous Epith Cells 2+ Amorphous Sediment TRACE Urine Bacteria NONE Lyme Screen IgG & IgM <0.90 Imaging Radiology Impressions: ITS Impressions KUB X-Ray 05/07/21 18:39 IMPRESSION: Essentially unremarkable bowel gas pattern with stool and air seen throughout the colon to the rectum. Medications Medications Current Medications Acetaminophen (Acetaminophen 325 Mg Tablet) 650 mg PO Q6H PRN PRN Reason: Headache/Pain Mild Scale (1-3) Al Hydroxide/Mg Hydroxide (Magnesium Hydrox/Alum Hydrox 30 Ml Oral.Susp) 30 ml PO Q6H PRN PRN Reason: Heartburn/Nausea Hydroxyzine HCl (Hydroxyzine Hcl 25 Mg Tablet) 25 mg PO BEDTIME PRN PRN Reason: Anxiety Magnesium Hydroxide (Milk Of Magnesia 30 Ml Oral.Susp) 30 ml PO DAILY PRN PRN Reason: Constipation Olanzapine (Olanzapine Odt 10 Mg Tab.Rapdis) 5 mg TRANSLINGU BEDTIME ARLENE Last Admin: 05/19/21 20:13 Dose: 5 mg Documented by: Allergies Allergies Allergy/AdvReac Type Severity Reaction Status Date / Time codeine [CODEINE] AdvReac Mild NAUSEA Verified 05/07/21 18:21 Assessment & Plan Assessment & Plan (1) Psychosis: Status: Acute Code(s): F29 - Unspecified psychosis not due to a substance or known physiological condition Assessment and Plan: customs entry writer covering 05/19/21 no changes to current tx plan The patient is an elderly female, with over with no prior psychiatric history with a recent onset of psychotic symptoms elicited by auditory hallucinations, but with disorganized behavior and dysphoric mood. She is unable to contract for safety, she is uncooperative and according to her daughter she has a healthcare proxy. Plan. 1. Change Zyprexa to Zydis to assure compliance 2. Wait for court for Section 7 and 8. 3. MRI ordered but the patient refuse the procedure 4. We received the MRI results from [facility] without new pathology Greater than 50% of the session was spent on counseling and/or coordination of care Reason for contiued inpatient stay Substantial Risk for: inability to function
[2021-05-20 08:42] VITALS: BP 101/60; PULSE 92; RESP 14; TEMP 36.7; O2SAT 97
[2021-05-20 21:54] VITALS: BP 102/59; PULSE 85; RESP 17; TEMP 36.4; O2SAT 96
[2021-05-20] MEDS: OLANZapine ODT 10 MG TAB.RAPDIS 5 MG TRANSLINGU (21:57)
[2021-05-21 08:10] VITALS: BP 116/66; PULSE 93; RESP 14; TEMP 36.6; O2SAT 97
--- NOTE | 2021-05-21 12:48 | P.PNPSI_ITS ---
Subjective Subjective Date of Service: 05/21/21 Reason For Visit: Paranoia Interim History: pt more friendly today; watching football game; she walks and talks with display card writer, with more spontaneous speech, warm affect and at appropriate volume (much quieter yesterday). She says she's always been a football fan; mood is good; no SI/HI/AVH. Had a good visit with daughter. Does not feel need to discuss anything and is w/out any questions. Mental Status Exam Mental Status Exam Narrative: Patient Appearance:?Well Groomed Patient Orientation:?Person place? Level of Consciousness:?Awake Patient Behavior:?friendlier, less guarded Mood Description:? fine Affect Description:?brighter, warmer Patient Cognition Impaired:?Yes Ability to Follow Directions:?Fair Speech Pattern:?Appropriate, spontaneous; volume, prosody WNL Hallucinations:?denies Delusions:won't talk about; recent hx of?Paranoid Ideation Thought Process:?normal rate; linear and goal directed; some latency but less Thought Content:?either vacant or won't discuss Judgment:?taking meds so fair insight: impaired Diagnostics Vital Signs (24Hr): Vital Signs - 24 hr 05/20/21 21:54 05/21/21 08:10 Temperature 97.6 F 97.9 F Pulse Rate 85 93 Respiratory Rate 17 14 Blood Pressure 102/59 L 116/66 Pulse Oximetry 96 97 Body Mass Index 18.9 Labs Results: 05/15/21 06:11 05/15/21 06:11 Labs: Laboratory Results - last 48 hr 05/18/21 05/19/21 14:15 15:30 Urine Color YELLOW Urine Appearance CLEAR Urine pH 5.5 Ur Specific [place] 1.025 Urine Protein NEG Urine Glucose (UA) NEG Urine Ketones NEG Urine Blood NEG Urine Nitrite NEG Ur Leukocyte Esterase 2+ H Urine RBC 0-2 Urine WBC 5-9 H Ur Squamous Epith Cells 2+ Amorphous Sediment TRACE Urine Bacteria NONE Lyme Screen IgG & IgM <0.90 Lyme Progressive Test TNP Imaging Radiology Impressions: ITS Impressions KUB X-Ray 05/07/21 18:39 IMPRESSION: Essentially unremarkable bowel gas pattern with stool and air seen throughout the colon to the rectum. Medications Medications Current Medications Acetaminophen (Acetaminophen 325 Mg Tablet) 650 mg PO Q6H PRN PRN Reason: Headache/Pain Mild Scale (1-3) Al Hydroxide/Mg Hydroxide (Magnesium Hydrox/Alum Hydrox 30 Ml Oral.Susp) 30 ml PO Q6H PRN PRN Reason: Heartburn/Nausea Hydroxyzine HCl (Hydroxyzine Hcl 25 Mg Tablet) 25 mg PO BEDTIME PRN PRN Reason: Anxiety Magnesium Hydroxide (Milk Of Magnesia 30 Ml Oral.Susp) 30 ml PO DAILY PRN PRN Reason: Constipation Olanzapine (Olanzapine Odt 10 Mg Tab.Rapdis) 5 mg TRANSLINGU BEDTIME ARLENE Last Admin: 05/20/21 21:57 Dose: 5 mg Documented by: Allergies Allergies Allergy/AdvReac Type Severity Reaction Status Date / Time codeine [CODEINE] AdvReac Mild NAUSEA Verified 05/07/21 18:21 Assessment & Plan Assessment & Plan (1) Psychosis: Status: Acute Code(s): F29 - Unspecified psychosis not due to a substance or known physiological condition Assessment and Plan: COVERAGE: display card writer covering 05/20/21 no changes to current tx plan; pt has been improving; though still w/out insight and still guarded (but less so) she friendlier, more outward, improved affect; will leave meds as they are for now and defer to primary team The patient is an elderly female, with over with no prior psychiatric history with a recent onset of psychotic symptoms elicited by auditory hallucinations, but with disorganized behavior and dysphoric mood. She is unable to contract for safety, she is uncooperative and according to her daughter she has a healthcare proxy. Plan. 1. Change Zyprexa to Zydis to assure compliance 2. Wait for court for Section 7 and 8. 3. MRI ordered but the patient refuse the procedure 4. We received the MRI results from [facility] without new pathology Greater than 50% of the session was spent on counseling and/or coordination of care Reason for contiued inpatient stay Substantial Risk for: rapid decompensation
--- NOTE | 2021-05-21 13:04 | HO.PSYCHPN ---
Subjective Subjective Date of Service: 05/21/21 Reason For Visit: Paranoia Interim History: pt reports she's doing well and continues to have brighter, warmer affect, smiling hello appropriately. She says she slept well and is reportedly eating well and taking medication. Pt denies any complaints and has no requests. Journal Clerk asks if she'd be willing to discuss events surrounding her admission but she politely declines. Mental Status Exam Mental Status Exam Narrative: ?Patient Appearance:?Well Groomed Patient Orientation:?Person place? Level of Consciousness:?Awake Patient Behavior:?friendlier, less guarded Mood Description:? well Affect Description:?brighter, warmer Patient Cognition Impaired:?Yes Ability to Follow Directions:?Fair Speech Pattern:?Appropriate, spontaneous; volume, prosody WNL Hallucinations:?denies Delusions:won't talk about; recent hx of?Paranoid Ideation Thought Process:?normal rate; linear and goal directed; some latency but less Thought Content:?either vacant or won't discuss Judgment:?taking meds so fair insight: impaired Diagnostics Vital Signs (24Hr): Vital Signs - 24 hr 05/20/21 21:54 05/21/21 08:10 Temperature 97.6 F 97.9 F Pulse Rate 85 93 Respiratory Rate 17 14 Blood Pressure 102/59 L 116/66 Pulse Oximetry 96 97 Body Mass Index 18.9 Labs Results: 05/15/21 06:11 05/15/21 06:11 Labs: Laboratory Results - last 48 hr 05/18/21 05/19/21 14:15 15:30 Urine Color YELLOW Urine Appearance CLEAR Urine pH 5.5 Ur Specific [employer] 1.025 Urine Protein NEG Urine Glucose (UA) NEG Urine Ketones NEG Urine Blood NEG Urine Nitrite NEG Ur Leukocyte Esterase 2+ H Urine RBC 0-2 Urine WBC 5-9 H Ur Squamous Epith Cells 2+ Amorphous Sediment TRACE Urine Bacteria NONE Lyme Screen IgG & IgM <0.90 Lyme Progressive Test TNP Imaging Radiology Impressions: ITS Impressions KUB X-Ray 05/07/21 18:39 IMPRESSION: Essentially unremarkable bowel gas pattern with stool and air seen throughout the colon to the rectum. Medications Medications Current Medications Acetaminophen (Acetaminophen 325 Mg Tablet) 650 mg PO Q6H PRN PRN Reason: Headache/Pain Mild Scale (1-3) Al Hydroxide/Mg Hydroxide (Magnesium Hydrox/Alum Hydrox 30 Ml Oral.Susp) 30 ml PO Q6H PRN PRN Reason: Heartburn/Nausea Hydroxyzine HCl (Hydroxyzine Hcl 25 Mg Tablet) 25 mg PO BEDTIME PRN PRN Reason: Anxiety Magnesium Hydroxide (Milk Of Magnesia 30 Ml Oral.Susp) 30 ml PO DAILY PRN PRN Reason: Constipation Olanzapine (Olanzapine Odt 10 Mg Tab.Rapdis) 5 mg TRANSLINGU BEDTIME ARLENE Last Admin: 05/20/21 21:57 Dose: 5 mg Documented by: Allergies Allergies Allergy/AdvReac Type Severity Reaction Status Date / Time codeine [CODEINE] AdvReac Mild NAUSEA Verified 05/07/21 18:21 Assessment & Plan Assessment & Plan (1) Psychosis: Status: Acute Code(s): F29 - Unspecified psychosis not due to a substance or known physiological condition Assessment and Plan: WEEKEND COVERAGE: adjusto writer operator covering 05/21/21 no changes to current tx plan; pt has been improving; though still w/out insight and still guarded (but less so) she is friendlier, more outward and with brighter affect; will leave meds as they are for now and defer to primary team The patient is an elderly female, with over with no prior psychiatric history with a recent onset of psychotic symptoms elicited by auditory hallucinations, but with disorganized behavior and dysphoric mood. She is unable to contract for safety, she is uncooperative and according to her daughter she has a healthcare proxy. Plan. 1. Change Zyprexa to Zydis to assure compliance 2. Wait for court for Section 7 and 8. 3. MRI ordered but the patient refuse the procedure 4. We received the MRI results from [facility] without new pathology Greater than 50% of the session was spent on counseling and/or coordination of care Reason for contiued inpatient stay Substantial Risk for: med/psych decompensation
--- NOTE | 2021-05-21 16:11 | MHC.CLN ---
F/U APPEARS TO BE DOING BETTER. NO REPORTED CONCERNS WITH EATING/MEALS. CONTINUE TO FOLLOW WEEKLY.
[2021-05-21 18:00] VITALS: BP 108/60; PULSE 64; TEMP 36.2; O2SAT 97
[2021-05-21] MEDS: OLANZapine ODT 10 MG TAB.RAPDIS 5 MG TRANSLINGU (21:35)
[2021-05-22 06:00] VITALS: BP 104/56; PULSE 101; RESP 16; TEMP 36.1; O2SAT 96
--- NOTE | 2021-05-22 12:49 | HO.PSYCHPN ---
Subjective Subjective Date of Service: 05/22/21 Reason For Visit: Paranoia Subjective Notes: Section 7 and Section 8 Interim History: The nursing staff reported the patient has been compliant with Zyprexa for several days. She was seen attending to few groups, she looks more pleasant and cooperative but she refused to talk about why she was brought into the hospital. On interview, the patient denies new symptoms she states that she is doing fine. We had a family meeting and we explained the situation to her family and they decided that they want to take her back home with services. Medication Compliance: Yes Side effects from medications: No Attending Groups: Intermittent Review of Systems Acute medical concerns: No Medical Review of Systems: unchanged Mental Status Exam Mental Status Exam Patient Appearance: Well Grooomed Patient Orientation: Person, Place and Situation Level of Consciousness: Awake Patient Behavior: Appropriate Mood Description: Blunted Affect Description: Calm Patient Cognition Impaired: Yes Ability to Follow Directions: Good Speech Pattern: Clear Hallucinations: None Delusions: Not Present Thought Process: Linear and Evasive Thought Content: positive for Slowed Thinking Judgement: Fair Diagnostics Vital Signs (24Hr): Vital Signs - 24 hr 05/21/21 18:00 05/22/21 06:00 Temperature 97.2 F 97.0 F Pulse Rate 64 101 H Respiratory Rate 16 Blood Pressure 108/60 104/56 L Pulse Oximetry 97 96 Body Mass Index 18.9 Labs Results: 05/15/21 06:11 05/15/21 06:11 Labs: Laboratory Results - last 48 hr 05/18/21 14:15 Lyme Progressive Test TNP Imaging Radiology Impressions: ITS Impressions KUB X-Ray 05/07/21 18:39 IMPRESSION: Essentially unremarkable bowel gas pattern with stool and air seen throughout the colon to the rectum. Medications Medications Current Medications Acetaminophen (Acetaminophen 325 Mg Tablet) 650 mg PO Q6H PRN PRN Reason: Headache/Pain Mild Scale (1-3) Al Hydroxide/Mg Hydroxide (Magnesium Hydrox/Alum Hydrox 30 Ml Oral.Susp) 30 ml PO Q6H PRN PRN Reason: Heartburn/Nausea Hydroxyzine HCl (Hydroxyzine Hcl 25 Mg Tablet) 25 mg PO BEDTIME PRN PRN Reason: Anxiety Magnesium Hydroxide (Milk Of Magnesia 30 Ml Oral.Susp) 30 ml PO DAILY PRN PRN Reason: Constipation Olanzapine (Olanzapine Odt 10 Mg Tab.Rapdis) 5 mg TRANSLINGU BEDTIME ARLENE Last Admin: 05/21/21 21:35 Dose: 5 mg Documented by: Allergies Allergies Allergy/AdvReac Type Severity Reaction Status Date / Time codeine [CODEINE] AdvReac Mild NAUSEA Verified 05/07/21 18:21 Assessment & Plan Assessment & Plan (1) Psychosis: Status: Acute Code(s): F29 - Unspecified 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 She is unable to contract for safety, she is uncooperative and according to her daughter she has a healthcare proxy. Plan. 1. Change Zyprexa to Zydis to assure compliance 2. Wait for court for Section 7 and 8. 3. Discharge tomorrow with services to home Greater than 50% of the session was spent on counseling and/or coordination of care Reason for contiued inpatient stay Substantial Risk for: inability to function, rapid decompensation and med/psych decompensation
[2021-05-22 18:00] VITALS: BP 106/55; PULSE 79; RESP 18; TEMP 36.9; O2SAT 96
[2021-05-22] MEDS: OLANZapine ODT 10 MG TAB.RAPDIS 5 MG TRANSLINGU (20:13)
[2021-05-23 08:21] VITALS: BP 114/69; PULSE 94; RESP 14; TEMP 35.8; O2SAT 97
--- NOTE | 2021-05-23 09:48 | PM.PSYDC ---
DS: Providers Provider Date of Service: 05/23/21 Date of admission: 05/09/21 12:50 Date of discharge: 05/23/21 Primary care physician: Ole Moralez MD Attending physician on discharge: Rupert Vaca DS: Diagnosis Discharge Diagnosis (1) Psychosis: Status: Acute DS: Medications Discharge Medications Home Medications: Home Medications Medication Instructions Recorded Confirmed No Known Home Meds 05/17/21 05/17/21 Mental Status Exam Mental Status Exam Patient Appearance: Well Grooomed Patient Orientation: Person, Place and Situation Level of Consciousness: Awake and Appropriate Patient Behavior: Appropriate Mood Description: Calm Affect Description: Constricted Patient Cognition Impaired: Yes Ability to Follow Directions: Good Speech Pattern: Clear Memory Description: Normal for Patient Hallucinations: None Delusions: Not Present Thought Process: Linear Thought Content: positive for Circumstantial Judgement: Fair Data Data Completed and Pending Completed studies during hospitalization [Text1]: 05/18/21 05/19/21 14:15 15:30 Urine Color YELLOW Urine Appearance CLEAR Urine pH 5.5 Ur Specific Gay 1.025 Urine Protein NEG Urine Glucose (UA) NEG Urine Ketones NEG Urine Blood NEG Urine Nitrite NEG Ur Leukocyte Esterase 2+ H Urine RBC 0-2 Urine WBC 5-9 H Ur Squamous Epith Cells 2+ Amorphous Sediment TRACE Urine Bacteria NONE Lyme Screen IgG & IgM <0.90 Lyme Progressive Test TNP 05/19/21 15:58 Urine clean catch - Urine liu top Urine Culture - Final 05/15/21 Unknown Urine clean catch - Clean Catch Midstream Urine Culture - Final 05/08/21 18:22 Urine clean catch - Clean Catch Midstream Urine Culture - Final Imaging Diagnostic Imaging Impressions KUB X-Ray 05/07/21 18:39 IMPRESSION: Essentially unremarkable bowel gas pattern with stool and air seen throughout the colon to the rectum. DS: Summary Hospital Course Hospital Course: The patient is a 75-year-old female with no prior psychiatric history but sings March 24, she presented with several psychotic symptoms without a clear stressor. Please see HPI for more details. She was referred to the emergency room, assessed by the care team and admitted into this facility for psychiatric stabilization. Her healthcare proxy was invoked since the patient did not have capacity to make informed decisions due to her psychosis. On admission, the patient denied psychotic symptoms, she refused to engage in therapy and she refused medications. She also made aware that she wanted to leave the hospital as soon as possible so Section 7 and 8 was field. We had family meetings, we tried to engage with the patient in different ways but she was adamant and denied psychotic symptoms even though that she was internally preoccupied. We started her on Zyprexa and eventually she started taking it up to 5 mg p.o. q.h.s. without any side effects. The patient's mood improved, she did look more engageable and sociable with peers and staff. There was no evidence of psychotic symptoms, delusional thinking or disorganized behavior and since there were no safety concerns discharge planning was discussed with her family. 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 [facility] to follow up to schedule intake. ) [facility] [Other] - 1 Week (Referral has been placed for psychiatry appointment. Awaiting date and time. ) Ole Moralez MD [Primary Care Provider] - 1 Week (Patient has appointment in Aug. PCP's office will call if they can schedule earlier appointment.) Discharge Medications: New olanzapine 5 mg tablet,disintegrating 5 mg PO BEDTIME 30 Days Qty: 30 RF: 0 Discharge Orders: Discharge Order (Routine); Ordered 05/23/21 Ordered By: Rupert Vaca Diet: advance to usual diet Activity on Discharge: As tolerated Stand Alone Forms: Patient Portal Discharge page, Community Support Care Plan Goals: Care plan goals achieved in the admission Health Concerns: No medical problems, see outpatient providers for follow-up Plan of Treatment: Continue medication management Assessment: Elderly female with a history of vascular dementia with a new onset of psychosis most likely due to UTI or TIA. MRIs and other lab work did not showed any changes. Her psychosis resolved with Zyprexa 5 mg p.o. q.h.s.. Since there were no safety concerns discharge planning was discussed.
--- NOTE | 2021-05-23 13:26 | PC.NURSE ---
Patient alert and oriented. Expressed excitement regarding getting home to see her grandchildren. Patient was appropriately dressed. Neatly groomed. Daughter participatied in discharge. All information was explained and understanding verbalized by patient and daughter. Patient escorted to front of hospital by staff.
== END 2021-05-23 13:25 | disposition home or self-care (01) | DRG 885 ==
LOC: HO.ED 05-08 06:18 → HO.PGERI 05-09 12:57
PROVIDERS: Physician Assistant; Admitting Provider Psychiatry & Neurology Psychiatry; Emergency Provider Emergency Medicine; PCP Internal Medicine; Visit Provider Psychiatry & Neurology Psychiatry
DX: F29 Unspecified psychosis not due to a substance or known physiological condition (principal); K59.00 Constipation, unspecified; Z88.5 Allergy status to narcotic agent; Z20.822 Contact with and (suspected) exposure to COVID-19; Z79.899 Other long term (current) drug therapy
CPT/HCPCS: 36415; 74018; 80048; 80053; 80307; 81001; 82077; 82306; 82607; 82746; 84443; 85025; 85652; 86038; 86039; 86140; 86431; 86617; 86618; 86780; 87086; 87635; 99285

== ENCOUNTER 2022-05-02 12:12 | Emergency (ER) | payer MEDICARE, OTHER, SELFPAY ==
--- NOTE | ~2022-05-02 | XR_ITS ---
EXAMINATION: XR HIP, LEFT CLINICAL INFORMATION: Fall, pain, external rotation. COMPARISON: None TECHNIQUE: AP pelvis, AP and frog-leg lateral views of the left hip. FINDINGS: Displaced subcapital left femoral neck fracture with superior migration and external rotation left femoral shaft. Femoral head also appears rotated in the acetabular cup. No dislocation. Right hip joint space is maintained. Pubic symphysis and sacroiliac joints are congruent and intact. Levoconvex curvature of the lumbar spine with disc degenerative change and facet arthrosis. XR/XR hip LT w PEL1V IMPRESSION: 1. Displaced subcapital left femoral neck fracture.
[2022-05-02 12:24] VITALS: BP 129/88; PULSE 95; O2SAT 98
[2022-05-02 12:25] VITALS: BP 128/71; PULSE 88; RESP 18; TEMP 36.4; O2SAT 95; BMI 18.0
[2022-05-02] MEDS: Morphine Sulfate 4 MG/ML CARTRIDGE IVPUSH (13:09)
--- NOTE | 2022-05-02 13:12 | ED.FALL ---
HPI - Fall General Chief Complaint: Fall Stated Complaint: Hip pain after fall Time Seen by Provider: 05/02/22 12:44 Source: patient Mode of arrival: EMS Limitations: no limitations History of Present Illness HPI Narrative: Patient presents emergency department via EMS for evaluation after a fall. She reports that she was walking down the stairs while carrying a laundry basket and she subsequently fell as she missed the last step, denies any preceding symptoms that would have provoked the fall. She fell landing onto her left side. Denies any head strike or loss of consciousness. Denies dizziness or lightheadedness. She was unable to get up on her own. EMS had to facilitate transfer to the stretcher. She is currently reporting pain to the left groin and hip that radiates down the lateral side of the thigh. Denies any numbness or tingling to the extremity Related Data Home Medications Medication Instructions Recorded Confirmed escitalopram oxalate 10 mg tablet 1 tab PO BEDTIME 05/02/22 05/02/22 galantamine 16 mg 24 hr 1 cap PO QAM 05/02/22 05/02/22 capsule,extended release olanzapine 2.5 mg tablet 1 tab PO BEDTIME 05/02/22 05/02/22 olanzapine 2.5 mg tablet 1 tab PO DAILY PRN Agitation 05/02/22 05/02/22 Allergies Allergy/AdvReac Type Severity Reaction Status Date / Time codeine [CODEINE] AdvReac Mild NAUSEA Verified 05/07/21 18:21 Review of Systems Review of Systems: Constitutional: No fever. No chills. No weakness. No fatigue. Skin: No rash. No itching. Cardiovascular: No chest pain. No chest pressure. No palpitations. No pedal edema. Respiratory: No shortness of breath. No cough. No sputum production. Gastrointestinal: No nausea. No vomiting. No diarrhea. No abdominal pain. Genitourinary: No burning micturition. No urinary frequency. No incontinence. Neurologic: No headache. No dizziness. No pre-syncope/ syncope. No unilateral weakness. No numbness. No tingling. No change in bowel or bladder control. Musculoskeletal: No muscle pain. No back pain. Positive left hip pain. No stiffness. Hematologic: No bleeding. No bruising. Yes all other systems are reviewed and are negative PMFSH Past Medical History Attestation statement: The following information was validated with the patient. Source: old records reviewed Medical History Graves' disease Social History Social History Household Members: Spouse and Family Household Members Other:: grandchildren Housing: House Do you presently have visiting nurse or other home services: No Unable to assess alcohol history related to: Refusing to respond Patient Tobacco Use Status: Never used Tobacco Advance Directives: Yes Advance Directives on File: Yes Advance Directives Date on File: 05/28/21 service: No Sexual orientation: Straight/Heterosexual Physical Exam Vital Signs: Vital Signs: Last Vital Signs Temp 97.6 F 05/02/22 12:25 Pulse 95 05/02/22 16:17 Resp 16 05/02/22 16:17 BP 118/65 05/02/22 16:17 Pulse Ox 95 05/02/22 12:25 O2 Del Method 05/02/22 12:25 BMI result Body Mass Index 18.0 Appearance: Alert.?Oriented to person, place and time. No acute distress.?Normal affect. Eyes: Pupils equal, round and reactive to light.? ENT: Pharynx normal.?? Neck: Normal inspection.? Neck supple.?? CVS: Heart sounds normal. Normal heart rate and rhythm.? Pulses normal.?? Respiratory: No respiratory distress.? Lung sounds clear to auscultation bilaterally?? Abdomen: Soft and non-tender. Normoactive bowel sounds. ?? Skin: Skin warm and dry.? Normal skin color.? ?? Extremities: No lower extremity edema.? Left lower extremity externally rotated, tenderness upon palpation of the left external hip and groin. 2+ DP/PT pulse bilaterally. Neuro: Moves all extremities spontaneously. Sensation intact bilaterally. No focal neuro deficits. Course Course Course Narrative: Patient is a 76-year-old female with a past medical history of vascular dementia, dementia, Graves disease not currently receiving treatment. Presents emergency department for evaluation after a mechanical fall, missing last step in landing subsequently on left side. Patient is overall well-appearing. No focal neurological deficits. Reports pain to be 8/10 made worse with any type of movement to the left lower extremity. Extremity is neurovascularly intact distally. Upon physical exam is externally rotated, XR reveals displaced subcapital left femoral neck fracture. Spoke with orthopedics corrections corporal Preeti Corrales, advised the patient will require a left hip kya arthroplasty and our arthroplasty surgeon is on leave at this time therefore will require transfer for care. Patient and family updated on these findings. Will attempt to transfer patient. Reevaluation(s) Reevaluation #1: Patient accepted for ED to ED transfer at [facility], accepting physician Dr. Kody Jameson. Patient and family updated on plan of care. Will arrange for ambulance transfer. MDM - Fall Medical Records Attestation: I reviewed the patient's medical records. Lab Data Attestation: I reviewed the patient's lab results. Result diagrams: 05/02/22 13:02 05/02/22 13:32 Labs: Lab Results 05/02/22 05/02/22 05/02/22 Range/Units 13:02 13:32 13:32 WBC 9.8 (4.8-10.8) X10*3/uL RBC 4.68 (4.20-5.50) X10*6/uL Hgb 14.8 (12.0-16.0) g/dl Hct 43.3 (37.0-47.0) % MCV 92.5 (80.0-98.0) fL MCH 31.6 (27.0-33.0) pg MCHC 34.2 (31.0-35.0) g/dl RDW 13.6 (11.0-16.0) % Plt Count 152 L (160-400) X10*3/uL MPV 10.1 (9.4-12.3) fL Immature Gran % (Auto) 0.8 H (0.0-0.4) % Neut % (Auto) 90.8 H (45-73) % Lymph % (Auto) 5.8 L (20-40) % Green % (Auto) 2.2 (2-11) % Eos % (Auto) 0.2 (0-4) % Baso % (Auto) 0.2 (0-2) % Lymph # (Auto) 0.6 L (1.2-4.9) X10*3/uL Green # (Auto) 0.2 (0.1-1.2) X10*3/uL Eos # (Auto) 0.0 (0.0-0.4) X10*3/uL Baso # (Auto) 0.0 (0.0-0.2) X10*3/uL Abs Immat Gran (auto) 0.08 H (0.00-0.03) X10*3/uL Absolute Neuts (auto) 8.9 H (2.0-8.3) x10*3/uL Absolute Nucleated RBC 0.000 (0.0-0.012) X10*3/uL Nucleated RBC % (auto) 0.0 (0.0-0.2) /100WBC Smear Tech's Comments VERIFIED Sodium 142 (135-145) mmol/L Potassium 3.9 (3.3-5.1) mmol/L Chloride 106 (96-108) mmol/L Carbon Dioxide 25 (22-29) mmol/L Anion Gap 15 (12-20) BUN 16 (9-16) mg/dL Creatinine 0.80 (0.5-1.4) mg/dL Estim Creat Clear Calc 49.2 Estimated GFR > 60 Random Glucose 102 (60-115) mg/dL Calcium 9.5 (8.4-10.2) mg/dL Total Bilirubin 1.4 H (0.0-1.0) mg/dL AST 35 H (5-31) U/L ALT 31 (0-31) U/L Alkaline Phosphatase 94 (39-117) U/L Total Protein 6.5 (6.5-8.0) g/dL Albumin 4.0 (3.5-5.0) g/dL COVID-19 ([facility]) (Negative) COVID-19 Clin Com Blood Type AB Negative Antibody Screen NEGATIVE 05/02/22 Range/Units 16:59 WBC (4.8-10.8) X10*3/uL RBC (4.20-5.50) X10*6/uL Hgb (12.0-16.0) g/dl Hct (37.0-47.0) % MCV (80.0-98.0) fL MCH (27.0-33.0) pg MCHC (31.0-35.0) g/dl RDW (11.0-16.0) % Plt Count (160-400) X10*3/uL MPV (9.4-12.3) fL Immature Gran % (Auto) (0.0-0.4) % Neut % (Auto) (45-73) % Lymph % (Auto) (20-40) % Green % (Auto) (2-11) % Eos % (Auto) (0-4) % Baso % (Auto) (0-2) % Lymph # (Auto) (1.2-4.9) X10*3/uL Green # (Auto) (0.1-1.2) X10*3/uL Eos # (Auto) (0.0-0.4) X10*3/uL Baso # (Auto) (0.0-0.2) X10*3/uL Abs Immat Gran (auto) (0.00-0.03) X10*3/uL Absolute Neuts (auto) (2.0-8.3) x10*3/uL Absolute Nucleated RBC (0.0-0.012) X10*3/uL Nucleated RBC % (auto) (0.0-0.2) /100WBC Smear Tech's Comments Sodium (135-145) mmol/L Potassium (3.3-5.1) mmol/L Chloride (96-108) mmol/L Carbon Dioxide (22-29) mmol/L Anion Gap (12-20) BUN (9-16) mg/dL Creatinine (0.5-1.4) mg/dL Estim Creat Clear Calc Estimated GFR Random Glucose (60-115) mg/dL Calcium (8.4-10.2) mg/dL Total Bilirubin (0.0-1.0) mg/dL AST (5-31) U/L ALT (0-31) U/L Alkaline Phosphatase (39-117) U/L Total Protein (6.5-8.0) g/dL Albumin (3.5-5.0) g/dL COVID-19 ([facility]) Negative (Negative) COVID-19 Clin Com See Note Blood Type Antibody Screen Imaging Data XR hip: Radiologist's impression: FINDINGS: Displaced subcapital left femoral neck fracture with superior migration and external rotation left femoral shaft. Femoral head also appears rotated in the acetabular cup. No dislocation. Right hip joint space is maintained. Pubic symphysis and sacroiliac joints are congruent and intact. Levoconvex curvature of the lumbar spine with disc degenerative change and facet arthrosis. XR/XR hip LT w PEL1V IMPRESSION: ? 1. Displaced subcapital left femoral neck fracture. Discharge Plan Discharge Clinical Impression: Closed left femoral fracture, Fall Patient Disposition: Xfer [facility] Transfer Details: [facility] Emergency Department Prescriptions: No Action escitalopram oxalate 10 mg tablet 1 tab PO BEDTIME galantamine 16 mg capsule,ext rel. pellets 24 hr 1 cap PO QAM olanzapine 2.5 mg tablet 1 tab PO DAILY PRN (Reason: Agitation) olanzapine 2.5 mg tablet 1 tab PO BEDTIME
[2022-05-02 13:13] LABS: Basophils Percent Auto 0.2 % (0-2); Eosinophils Percent Auto 0.2 % (0-4); Hematocrit 43.3 % (37.0-47.0); Hemoglobin 14.8 g/dl (12.0-16.0); Imm Gran Abs Auto 0.08 X10*3/uL (0.00-0.03); Imm Gran Pct Auto 0.8 % (0.0-0.4); Lymphocytes Absolute Auto 0.6 X10*3/uL (1.2-4.9); Lymphocytes Percent Auto 5.8 % (20-40); MANUAL DIFF FLAG SCAN; Mean Corpuscular HGB Conc 34.2 g/dl (31.0-35.0); Mean Corpuscular Hemoglobin 31.6 pg (27.0-33.0); Mean Corpuscular Volume 92.5 fL (80.0-98.0); Mean Platelet Volume 10.1 fL (9.4-12.3); Monocytes Absolute Auto 0.2 X10*3/uL (0.1-1.2); Monocytes Percent Auto 2.2 % (2-11); Neutrophils Absolute Auto 8.9 x10*3/uL (2.0-8.3); Neutrophils Percent Auto 90.8 % (45-73); Platelet Count 152 X10*3/uL (160-400); Red Blood Count 4.68 X10*6/uL (4.20-5.50); Red Cell Distribution Width 13.6 % (11.0-16.0); SCAN SMEAR FLAG 1; White Blood Count 9.8 X10*3/uL (4.8-10.8)
[2022-05-02 13:48] VITALS: BP 94/64
[2022-05-02 13:48] LABS: SLIDE REVIEW VERIFIED
[2022-05-02 13:55] LABS: Alanine Aminotransferase 31 U/L (0-31); Alkaline Phosphatase 94 U/L (39-117); Anion Gap 15 (12-20); Aspartate Amino Transferase 35 U/L (5-31); Bilirubin Total 1.4 mg/dL (0.0-1.0); Blood Urea Nitrogen 16 mg/dL (9-16); Calcium 9.5 mg/dL (8.4-10.2); Carbon Dioxide 25 mmol/L (22-29); Chloride 106 mmol/L (96-108); Creatinine Clr Calc Pharmacy 49.2; Estimated Glomerular Filt Rate > 60; Glucose Random 102 mg/dL (60-115); Potassium 3.9 mmol/L (3.3-5.1); Sodium 142 mmol/L (135-145); Total Protein 6.5 g/dL (6.5-8.0)
--- NOTE | 2022-05-02 15:00 | PHA.MEDREC ---
Pharmacy Consult ? Medication Reconciliation Pharmacy has completed the medication reconciliation. pATIENT IS SUPPOSED TO BE ON ZYPREXA 2.5 MG BUT FAMILY IS USING 5MG
[2022-05-02 16:17] VITALS: BP 118/65; PULSE 95; RESP 16
--- NOTE | 2022-05-02 16:36 | PC.NURSE ---
placed a call to [facility] at 1632 they stated that they cant take the pt to [facility] due to lack of trucks.
[2022-05-02 17:37] LABS: COVID-19 Test Negative (Negative); IDNOW Serial# 9DB6401D
--- NOTE | 2022-05-02 17:43 | PC.NURSE ---
Calls were made to [facility], [facility], [facility], [facility] they all stated they cant take the pt to [facility]. [facility] to see if they could take the pt to [facility]. [facility] pt and they will go out via [facility]. [facility], [facility] and [facility] were notified.
--- NOTE | 2022-05-02 18:17 | PC.NURSE ---
report called to [facility] ED- report given to TIFFANIE Bradford
== END 2022-05-02 18:18 | disposition short-term general hospital (02) ==
PROVIDERS: Nurse Practitioner Family; Emergency Provider Emergency Medicine; PCP Internal Medicine
DX: S72.92XA Unspecified fracture of left femur, initial encounter for closed fracture (principal); M25.552 Pain in left hip; M79.605 Pain in left leg; W10.9XXA Fall (on) (from) unspecified stairs and steps, initial encounter; Y93.9 Activity, unspecified; Y92.9 Unspecified place or not applicable; Y99.9 Unspecified external cause status; Z79.899 Other long term (current) drug therapy; Z20.822 Contact with and (suspected) exposure to COVID-19
CPT/HCPCS: 36415; 73502; 80053; 85025; 86850; 86900; 86901; 87635; 96374; 99285; J2270

== ENCOUNTER 2022-06-16 12:08 | Emergency (ER) | payer MEDICARE, OTHER, SELFPAY ==
--- NOTE | ~2022-06-16 | XR_ITS ---
EXAMINATION: XR HIP, LEFT CLINICAL INFORMATION: Status post fall. History of repair. COMPARISON: 05/03/2022. TECHNIQUE: Two views of the left hip. XR/XR hip LT w PEL1V FINDINGS/IMPRESSION: Status post left hip arthroplasty, unchanged. No evidence of prosthesis fracture, loosening, or dislocation. No bony fracture is seen. No lytic or sclerotic lesion is appreciated. Degenerative changes of the lower lumbar spine.
[2022-06-16 12:28] VITALS: BP 105/71; PULSE 84; O2SAT 96
[2022-06-16 12:32] VITALS: BP 112/67; PULSE 94; RESP 18; TEMP 36.9; O2SAT 97; BMI 18.2
--- NOTE | 2022-06-16 13:56 | PC.NURSE ---
@1603 CALL PLACED TO [facility] REQUEST [facility]ERMAIN ANSWERS AND ASKS TO SPEAK WITH [facility] VASQUES TAKES OVER CALL RIGHT AWAY
--- NOTE | 2022-06-16 13:58 | ED.FALL ---
HPI - Fall General Chief Complaint: Fall Stated Complaint: FALL,SURGICAL SITE DISLODGED Time Seen by Provider: 06/16/22 12:40 Source: patient, family and EMS Mode of arrival: EMS Limitations: no limitations History of Present Illness HPI Narrative: 76-year-old female presenting to the ER with complaints of a wound dehiscence that occurred prior to arrival to her left hip after she had left hip replacement at [place] on 05/03/[address] Salcido. She reports that she tripped and fell on 1 of her granddaughters toys prior to arrival. She denies head injury loss of consciousness or neck injury or prolonged down time or any other symptoms complaints concerns or injuries at this time. She denies any symptoms prior to the fall reports this was mechanical. She denies any symptoms after a fall other than her wound dehiscence. She denies being on any blood thinners. MD complaint: fall Onset (ago): minute(s) ( Prior to arrival) Fall from: standing Fall witnessed: yes, by family Place fall occurred: home Loss of consciousness: none Prolonged down time: no Symptoms prior to fall: none Context: tripped/slipped Location of injury - extremities: left: lower leg (hip) Associated symptoms (after fall): other ( see above) Related Data Home Medications Medication Instructions Recorded Confirmed escitalopram oxalate 10 mg tablet 1 tab PO BEDTIME 05/02/22 05/02/22 galantamine 16 mg 24 hr 1 cap PO QAM 05/02/22 05/02/22 capsule,extended release olanzapine 2.5 mg tablet 1 tab PO BEDTIME 05/02/22 05/02/22 olanzapine 2.5 mg tablet 1 tab PO DAILY PRN Agitation 05/02/22 05/02/22 Previous Rx's Medication Instructions Recorded cephalexin 500 mg capsule 500 mg PO Q6H 10 days #40 caps 06/16/22 Allergies Allergy/AdvReac Type Severity Reaction Status Date / Time codeine [CODEINE] AdvReac Mild NAUSEA Verified 05/07/21 18:21 Review of Systems Review of Systems: Constitutional : No Fever, No Chills, Cardiovascular : No Chest Pain, No SOB Respiratory : No Dyspnea Gastrointestinal : No abdominal pain Musculoskeletal : No Joint Swelling Skin : positive skin wound, No new skin laceration, No Foreign bodies, No rash, No surrounding erythema Neuro : No Weakness, No Numbness/tingling Psych : No SI/HI/thoughts of self injury Yes all other systems are reviewed and are negative [facility] Past Medical History Attestation statement: The following information was validated with the patient. Source: old records reviewed, obtained from family and nursing notes reviewed Medical History Graves' disease Social History Social History Household Members: Spouse and Family Household Members Other:: grandchildren Housing: House Do you presently have visiting nurse or other home services: No Unable to assess alcohol history related to: Refusing to respond Patient Tobacco Use Status: Never used Tobacco Advance Directives: Yes Advance Directives on File: Yes Advance Directives Date on File: 05/28/21 service: No Sexual orientation: Straight/Heterosexual Physical Exam Vital Signs: Vital Signs: Last Vital Signs Temp 98.4 F 06/16/22 12:32 Pulse 94 06/16/22 12:32 Resp 18 06/16/22 12:32 BP 112/67 06/16/22 12:32 Pulse Ox 97 06/16/22 12:32 O2 Del Method 06/16/22 12:32 BMI result Body Mass Index 18.2 vital signs have been reviewed as normal and appeared to be correct. Blood pressure normal Heart rate normal. Respiration rate normal. Temperature normal. Oxygen saturation normal. Appearance: Alert. Oriented X3. No acute distress. Head: Normal external exam. Normocephalic. Atraumatic. Eyes: PERRLA. EOMI. Conjunctiva and sclera normal. Eyelids normal. ENT: Pharynx normal. Uvula midline. Moist mucous membranes. Neck: Normal inspection. Neck supple. FROM. CVS: Normal heart rate and rhythm. Respiratory: No respiratory distress. Painless inspiration. Skin: Skin warm and dry. Normal skin color. Normal skin turgor. patient with wound dehiscence of left surgical site. No active bleeding/foreign bodies/Drainage surrounding erythema or streaking noted. No additional rashes/lesions/lacerations noted. Extremities: Extremities exhibit normal range of motion. Extremities nontender. Neuro: Oriented X 3. No motor deficit. No sensory deficit. Reflexes normal. Normal steady gait. No focal neuro deficits noted. Vascular: + radial pulses/+ 2 distal pedal pulses/+2 dorsalis pedis b/l. Normal cap refill. No cyanosis noted to upper extremity nails and lower extremity toes nails. Course Course Course Narrative: I spoke to Dr. Mcfarlane from [facility] who recommended cleaning the wound with alcohol then placing a sterile dressing and taping the dressing into place. Instructed patient to keep the wound/ site clean and Dr. Salcido is office will call the patient tomorrow to follow-up within 24 hours. Therefore wound was cleaned with 1 bottle of rubbing alcohol then a sterile dressing was placed. Patient tolerated procedure well. No complications. X-ray was obtained was negative for any acute processes. Will DC home with prophylactic Keflex and instructions to follow-up with her orthopedic surgeon as scheduled when they call her. Patient with daughter at bedside understand agree this plan. MDM - Fall Medical Records Attestation: I reviewed the patient's medical records. Imaging Data Left hip x-ray: Attestation: I personally reviewed and interpreted this imaging study as follows: Radiologist's impression: EXAMINATION: XR HIP, LEFT CLINICAL INFORMATION: Status post fall. History of repair. COMPARISON: 05/03/2022. TECHNIQUE: Two views of the left hip. XR/XR hip LT w PEL1V FINDINGS/IMPRESSION: ? Status post left hip arthroplasty, unchanged. No evidence of prosthesis fracture, loosening, or dislocation. ? No bony fracture is seen. No lytic or sclerotic lesion is appreciated. ? Degenerative changes of the lower lumbar spine. Discharge Plan Discharge Clinical Impression: Wound dehiscence Patient Disposition: Home, Self-Care Instructions: Wound Dehiscence (ED) Additional Instructions: your orthopedic surgeon Dr. Salcido will call you tomorrow for the follow-up appointment if he does not call you please call him early in the morning and follow up within 24 hours. Prescriptions: New cephalexin 500 mg capsule 500 mg PO Q6H 10 Days Qty: 40 0RF No Action escitalopram oxalate 10 mg tablet 1 tab PO BEDTIME galantamine 16 mg capsule,ext rel. pellets 24 hr 1 cap PO QAM olanzapine 2.5 mg tablet 1 tab PO DAILY PRN (Reason: Agitation) olanzapine 2.5 mg tablet 1 tab PO BEDTIME Interventions: ED Discharge Assessment Last Done: 06/16/22 15:09
[2022-06-16] MEDS: cephALEXin 500 MG CAPSULE PO (15:07)
== END 2022-06-16 15:18 | disposition home or self-care (01) ==
PROVIDERS: Emergency Provider Emergency Medicine; PCP Internal Medicine
DX: T81.30XA Disruption of wound, unspecified, initial encounter (principal); Y82.9 Unspecified medical devices associated with adverse incidents; Y92.9 Unspecified place or not applicable
CPT/HCPCS: 73502; 99282; 99283

== ENCOUNTER 2022-10-15 09:50 | Emergency (ER) | payer MEDICARE, OTHER, SELFPAY ==
--- NOTE | ~2022-10-15 | CT_ITS ---
EXAMINATION: CT HEAD WITHOUT CONTRAST CLINICAL INFORMATION: Slurred speech COMPARISON: None. TECHNIQUE: Contiguous axial imaging was performed from the skull base to vertex without intravenous contrast. This CT examination was performed using dose optimization techniques as appropriate, variously including the following: * Automated exposure control * Adjustment of mA and/or kV according to patient size (this includes techniques or standardized protocols for targeted exams where dose is matched to indication/reason for exam; i.e. extremities or head) Use of iterative reconstruction technique DLP: 594 mGy-cm. FINDINGS: There is no evidence of acute intracranial hemorrhage or territorial infarction. No abnormal mass effect or midline shift is seen. Steinberg to white matter differentiation is well preserved. No extra-axial fluid collections are identified. No hydrocephalus. Proportional prominence of the ventricles and sulcal spaces is consistent with mild volume loss. Patchy periventricular and deep white matter hypoattenuation is consistent with mild small vessel ischemic changes. The osseous structures and soft tissues are normal. The mastoid air cells and visualized portions of the paranasal sinuses are well aerated. CT/CT head for stroke IMPRESSION: No acute intracranial pathology. Mild volume loss with small vessel ischemic change. This critical result was discussed with JACINTO Vo by telephone at 10/15/2022 10:07 AM and it was ascertained that the content and urgency of the report was understood at the time of direct communication.
--- NOTE | ~2022-10-15 | CT_ITS ---
EXAMINATION: CT angio head neck stroke CLINICAL INFORMATION: Slurred speech. COMPARISON: CT scan of the head 10/15/2022. TECHNIQUE: Retail Assistant Store Manager images were obtained. A CT angiogram of the head and neck was performed in the arterial phase after the intravenous administration of 70 mL Omnipaque 350. Delayed postcontrast images of the head were also obtained. MIP reconstructions were generated in multiple orientations at the acquisition workstation. Multiple three-dimensional surface rendered images and maximum intensity projection images were generated on a dedicated 3-D lab workstation. Arterial stenoses are measured in accordance with NASCET criteria or similar method if applicable. This CT examination was performed using dose optimization techniques as appropriate, including one or more of the following: Automated exposure control, iterative reconstruction, and adjustment of technique factors (mA and/or kVp) according to patient size (this includes techniques or standardized protocols for targeted exams where dose is matched to indication/reason for exam). Fleischner Society criteria for the followup of incidental pulmonary nodules was implemented if appropriate. Total exam dose-length product 1429 mGy-cm FINDINGS: Head: Postcontrast images reveal no abnormal intracranial mass or enhancement. There is no intracranial mass effect or midline shift. Lateral and third ventricles are normal. No hydrocephalus. Steinberg-white matter differentiation is grossly preserved and there is no evidence of acute territorial infarct. The calvarium and skull base are intact. Mastoid air cells and middle ear cavities are well aerated. No active paranasal sinus disease. CT angiogram neck: The aortic arch apex is normal. Origins of the major aortic branches are widely patent. Common carotid arteries are normal. A small amount of partially calcified atheromatous plaque involves both carotid bifurcations. No stenosis of the extracranial internal carotid arteries. The cervical segments of the vertebral arteries as well as their origins are patent. CT angiogram head: Intracranial internal carotid arteries are normal. The intradural vertebral artery segments and basilar artery are normal. Anterior, middle, and posterior cerebral artery complexes are normal. No intracranial arterial vessel occlusion. The timing of the contrast injection provides adequate opacification of the dural venous sinuses which are patent. Other: Soft tissues of the neck are unremarkable. Grossly no pathologically enlarged cervical lymph nodes. There is pleural-parenchymal scarring at the apices of both lungs. No acute osseous finding. Specifically no worrisome lytic or blastic osseous lesion. CT/CT angio head neck stroke IMPRESSION: Unremarkable examination in that there is no stenosis of the cervical carotid or vertebral arteries. No intracranial large vessel occlusion. Grossly no evidence of acute territorial infarct or hemorrhage. No abnormal intracranial mass or enhancement. This critical result was discussed with Swapna Peguero at 10:27 AM on 10/15/2022 and it was ascertained that the content and urgency of the report was understood at the time of direct communication.
[2022-10-15 09:55] VITALS: BP 93/76; PULSE 96; O2SAT 100
--- NOTE | 2022-10-15 09:57 | ECG_ITS ---
Test Reason : STROKE ALERT Blood Pressure : / mmHG Vent. Rate : 058 BPM Atrial Rate : 058 BPM P-R Int : 182 ms QRS Dur : 082 ms QT Int : 428 ms P-R-T Axes : 080 035 054 degrees QTc Int : 420 ms Sinus bradycardia Possible Left atrial enlargement Borderline ECG When compared with ECG of 24-DEC-2018 21:49, No significant change was found Referred By: Swapna Peguero Electronically Signed By:MIGUE SANTOS
--- NOTE | 2022-10-15 10:11 | ED.NEUROSD ---
HPI - Neuro Symptoms/Deficit General Chief Complaint: Weakness Stated Complaint: STROKE ALERT,LKWT 9:20,SLUR SPEECH,RESOLVED Source: patient Mode of arrival: EMS Limitations: no limitations History of Present Illness HPI Narrative: 76 yo female with hx of grave's disea and vascular dementia presents with EMS after 30 second episode of slurred speech and patient leaning to left at 920am. No symptoms on arrival, no headache, no trauma. Patient herself states she just felt off and like she was going to vomit. No CP/SOB. Onset (ago): hour(s) (920am) Timing confirmed by: family member Location: speech History of same: No Severity: mild Quality: other (slurred speech) Relieving factors: time Exacerbating factors: none Context: sudden onset On Anticoagulants: No Associated symptoms: denies other symptoms Treatments Prior to Arrival: none Related Data Home Medications Medication Instructions Recorded Confirmed escitalopram oxalate 10 mg tablet 1 tab PO BEDTIME 05/02/22 05/02/22 galantamine 16 mg 24 hr 1 cap PO QAM 05/02/22 05/02/22 capsule,extended release olanzapine 2.5 mg tablet 1 tab PO BEDTIME 05/02/22 05/02/22 olanzapine 2.5 mg tablet 1 tab PO DAILY PRN Agitation 05/02/22 05/02/22 Previous Rx's Medication Instructions Recorded cephalexin 500 mg capsule 500 mg PO Q6H 10 days #40 caps 06/16/22 Allergies Allergy/AdvReac Type Severity Reaction Status Date / Time codeine [CODEINE] AdvReac Mild NAUSEA Verified 05/07/21 18:21 Review of Systems Review of Systems: Constitutional : No Fever, No Chills, No Fatigue ENT/Mouth : No sore throat, No Rhinorrhea Eyes: No Eye Pain, No Swelling, No Redness Cardiovascular : No Chest Pain, No SOB, No Dyspnea on Exertion Respiratory : No Cough, No Sputum Gastrointestinal : pos Nausea, No Vomiting, No Diarrhea, No abdominal Pain Genitourinary : No Dysuria, No Urinary Frequency, No Hematuria, Musculoskeletal : No joint pain, No Myalgias, No Joint Swelling Skin : No Skin Lesions, No rash Neuro : No Weakness, No Numbness, No Dizziness, no Headache, pos slurred speech Psych : No Anxiety/Panic, No Depression Heme/Lymph: No Bruising, No Bleeding,No Lymphadenopathy Endocrine : No Polyuria, No Polydipsia All other systems reviewed and are negative [facility] Past Medical History Attestation statement: The following information was validated with the patient. Medical History (Updated 10/15/22 @ 12:41 by Swapna Peguero DO) Graves' disease Vascular dementia Social History Social History Household Members: Spouse and Family Household Members Other:: grandchildren Housing: House Do you presently have visiting nurse or other home services: No Unable to assess alcohol history related to: Refusing to respond Patient Tobacco Use Status: Never used Tobacco Smoked in Last 30 Days: No Use of substances other than those prescribed or required for medical reasons: No Advance Directives: Yes Advance Directives on File: Yes Advance Directives Date on File: 05/28/21 service: No Sexual orientation: Straight/Heterosexual Physical Exam Vital Signs: Vital Signs: Last Vital Signs Temp 97.9 F 10/15/22 10:20 Pulse 98 10/15/22 11:44 Resp 16 10/15/22 10:20 BP 145/84 H 10/15/22 11:44 Pulse Ox 95 10/15/22 10:20 O2 Del Method 10/15/22 10:20 BMI result Body Mass Index 18.1 Appearance: Alert. Oriented X3. No acute distress. Eyes: Pupils equal, round and reactive to light. ENT: Pharynx normal. Neck: Normal inspection. Neck supple. CVS: Normal heart rate and rhythm. Pulses normal. Respiratory: No respiratory distress. Breath sounds normal. Abdomen: Soft and nontender. Skin: Skin warm and dry. Normal skin color. Normal skin turgor. Extremities: No lower extremity edema. No calf ttp Neuro: Oriented X 3. No motor deficit. No sensory deficit. Course Course Course Narrative: daughter notes patient was pale, slurred speech 1 minute was sitting. no other symptoms or weakness. differential is still TIA vs near syncope offered TIA admission for MRI/ECHO but they refuse - will DC one aspirin 81mg daily and refer to PCP Medications Administered Discontinued Medications Generic Name Dose Route Start Last Admin Trade Name Freq PRN Reason Stop Dose Admin Iohexol 100 ml 10/15/22 10:14 10/15/22 10:15 Iohexol 350 Mg/Ml 100 Ml Infus..Btl IV 10/15/22 10:15 70 ml ONCE ONE Administration Medical Decision Making Medical Decision Making [facility] Narrative: 76 yo female with hx of Graves disease, vascular dementia with about 30 seconds of slurred speech, leaning to the left and nausea - she is not on thinners she is completely intact now and can even spell world backwards - she has NIH of 0, CT head, CTA and labs, UA ordered. Could have been near syncope vs TIA. Dispo per results and workup. Not a candidate for tPa given NIH 0 and no symptoms on arrival. Differential Diagnosis Differential Diagnoses: The differential diagnosis associated with the presentation includes TIA, near syncope Admission/Observation Consideration of admission/observation: Escalation of care including admission/observation considered Lab Data [facility] Lab Attestation statement: I reviewed the patient's lab results. 10/15/22 10:43 10/15/22 10:43 Labs: Lab Results 10/15/22 10/15/22 10/15/22 Range/Units 10:37 10:43 10:43 WBC 4.1 L (4.8-10.8) X10*3/uL RBC 4.35 (4.20-5.50) X10*6/uL Hgb 13.4 (12.0-16.0) g/dl Hct 40.5 (37.0-47.0) % MCV 93.1 (80.0-98.0) fL MCH 30.8 (27.0-33.0) pg MCHC 33.1 (31.0-35.0) g/dl RDW 13.7 (11.0-16.0) % Plt Count 143 L (160-400) X10*3/uL MPV 10.0 (9.4-12.3) fL Immature Gran % (Auto) 0.2 (0.0-0.4) % Neut % (Auto) 79.9 H (45-73) % Lymph % (Auto) 12.5 L (20-40) % Stone % (Auto) 5.2 (2-11) % Eos % (Auto) 1.7 (0-4) % Baso % (Auto) 0.5 (0-2) % Lymph # (Auto) 0.5 L (1.2-4.9) X10*3/uL Stone # (Auto) 0.2 (0.1-1.2) X10*3/uL Eos # (Auto) 0.1 (0.0-0.4) X10*3/uL Baso # (Auto) 0.0 (0.0-0.2) X10*3/uL Abs Immat Gran (auto) 0.01 (0.00-0.03) X10*3/uL Absolute Neuts (auto) 3.3 (2.0-8.3) x10*3/uL Absolute Nucleated RBC 0.000 (0.0-0.012) X10*3/uL Nucleated RBC % (auto) 0.0 (0.0-0.2) /100WBC PT (10.0-13.1) SEC INR (0.9-1.1) Sodium 139 (135-145) mmol/L Potassium 4.4 (3.3-5.1) mmol/L Chloride 106 (96-108) mmol/L Carbon Dioxide 22 (22-29) mmol/L Anion Gap 15 (12-20) BUN 16 (9-16) mg/dL Creatinine 0.75 (0.5-1.4) mg/dL Estim Creat Clear Calc 51.3 Estimated GFR > 60 Random Glucose 102 (60-115) mg/dL Calcium 8.9 D (8.4-10.2) mg/dL Magnesium 1.8 (1.6-2.6) mg/dL Total Bilirubin 1.4 H (0.0-1.0) mg/dL Direct Bilirubin 0.3 (0.0-0.5) mg/dL AST 23 (5-31) U/L ALT 12 (0-31) U/L Alkaline Phosphatase 115 (39-117) U/L Troponin I High Sens (<3.5-17.0) ng/L Total Protein 5.9 L (6.5-8.0) g/dL Albumin 3.6 (3.5-5.0) g/dL COVID-19 ([facility]) Negative (Negative) COVID-19 Clin Com See Note 10/15/22 10/15/22 Range/Units 10:43 10:43 WBC (4.8-10.8) X10*3/uL RBC (4.20-5.50) X10*6/uL Hgb (12.0-16.0) g/dl Hct (37.0-47.0) % MCV (80.0-98.0) fL MCH (27.0-33.0) pg MCHC (31.0-35.0) g/dl RDW (11.0-16.0) % Plt Count (160-400) X10*3/uL MPV (9.4-12.3) fL Immature Gran % (Auto) (0.0-0.4) % Neut % (Auto) (45-73) % Lymph % (Auto) (20-40) % Stone % (Auto) (2-11) % Eos % (Auto) (0-4) % Baso % (Auto) (0-2) % Lymph # (Auto) (1.2-4.9) X10*3/uL Stone # (Auto) (0.1-1.2) X10*3/uL Eos # (Auto) (0.0-0.4) X10*3/uL Baso # (Auto) (0.0-0.2) X10*3/uL Abs Immat Gran (auto) (0.00-0.03) X10*3/uL Absolute Neuts (auto) (2.0-8.3) x10*3/uL Absolute Nucleated RBC (0.0-0.012) X10*3/uL Nucleated RBC % (auto) (0.0-0.2) /100WBC PT 11.5 (10.0-13.1) SEC INR 1.0 (0.9-1.1) Sodium (135-145) mmol/L Potassium (3.3-5.1) mmol/L Chloride (96-108) mmol/L Carbon Dioxide (22-29) mmol/L Anion Gap (12-20) BUN (9-16) mg/dL Creatinine (0.5-1.4) mg/dL Estim Creat Clear Calc Estimated GFR Random Glucose (60-115) mg/dL Calcium (8.4-10.2) mg/dL Magnesium (1.6-2.6) mg/dL Total Bilirubin (0.0-1.0) mg/dL Direct Bilirubin (0.0-0.5) mg/dL AST (5-31) U/L ALT (0-31) U/L Alkaline Phosphatase (39-117) U/L Troponin I High Sens < 3.5 (<3.5-17.0) ng/L Total Protein (6.5-8.0) g/dL Albumin (3.5-5.0) g/dL COVID-19 ([facility]) (Negative) COVID-19 Clin Com Independent Interpretation I performed an independent interpretation of an: EKG and CT Scan Interpretation: Rate: 58 Rhythm: sinus bradycardia [place]: normal Normal P waves. Normal OPAL. Normal QRS complex. ST T wave : normal no CATIE qTC: normal prior studies: no acute ischemia The study has been interpreted contemporaneously by me. . Radiology Impression Discussion of test interpretation with radiology: I discussed test interpretation with the radiologist and I have reviewed the radiologist's reading. Independent Historian Clinical information obtained from an independent historian. History obtained from or confirmed by: EMS External Record Review External record reviewed: Inpatient record NIH Stroke Scale Internal: Initial- Upon Arrival Level of Consciousness: Alert Level of Consciousness Questions: Answers both questions correctly Level of Consciousness Commands: Performs both tasks correctly Best Gaze: Normal Visual: No visual loss Facial Palsy: Normal Motor Arm (Right): No drift Motor Arm (Left): No drift Motor Leg (Right): No drift Motor Leg (Left): No drift Limb Ataxia: Absent Sensory: Normal Best Language: No aphasia Dysarthia: Normal Extinction and Inattention: No abnormality Score: 0 Discharge Plan Discharge Clinical Impression: Near syncope Patient Disposition: Home, Self-Care Instructions: Near Syncope (ED) Additional Instructions: return to ED for any worsening symptoms or concerns take 81mg daily of aspirin you were offered admission for TIA workup but declined it is hard to say if this was near syncope vs TIA please call your doctor this week to follow up. Prescriptions: No Action cephalexin 500 mg capsule 500 mg PO Q6H 10 Days Qty: 40 0RF escitalopram oxalate 10 mg tablet 1 tab PO BEDTIME galantamine 16 mg capsule,ext rel. pellets 24 hr 1 cap PO QAM olanzapine 2.5 mg tablet 1 tab PO DAILY PRN (Reason: Agitation) olanzapine 2.5 mg tablet 1 tab PO BEDTIME
[2022-10-15] MEDS: iohexoL 350 MG/ML 100 ML INFUS..BTL IV (10:15)
[2022-10-15 10:20] VITALS: BP 121/65; PULSE 54; RESP 16; TEMP 36.6; O2SAT 95; BMI 18.1
[2022-10-15 10:47] LABS: MANUAL DIFF FLAG NO
[2022-10-15 10:51] LABS: Basophils Percent Auto 0.5 % (0-2); Eosinophils Absolute Auto 0.1 X10*3/uL (0.0-0.4); Eosinophils Percent Auto 1.7 % (0-4); Hematocrit 40.5 % (37.0-47.0); Hemoglobin 13.4 g/dl (12.0-16.0); Imm Gran Abs Auto 0.01 X10*3/uL (0.00-0.03); Imm Gran Pct Auto 0.2 % (0.0-0.4); Lymphocytes Absolute Auto 0.5 X10*3/uL (1.2-4.9); Lymphocytes Percent Auto 12.5 % (20-40); Mean Corpuscular HGB Conc 33.1 g/dl (31.0-35.0); Mean Corpuscular Hemoglobin 30.8 pg (27.0-33.0); Mean Corpuscular Volume 93.1 fL (80.0-98.0); Monocytes Absolute Auto 0.2 X10*3/uL (0.1-1.2); Monocytes Percent Auto 5.2 % (2-11); Neutrophils Absolute Auto 3.3 x10*3/uL (2.0-8.3); Neutrophils Percent Auto 79.9 % (45-73); Platelet Count 143 X10*3/uL (160-400); Red Blood Count 4.35 X10*6/uL (4.20-5.50); Red Cell Distribution Width 13.7 % (11.0-16.0); White Blood Count 4.1 X10*3/uL (4.8-10.8)
[2022-10-15 10:54] LABS: Prothrombin Time 11.5 SEC (10.0-13.1)
[2022-10-15 11:04] LABS: Alanine Aminotransferase 12 U/L (0-31); Albumin Level 3.6 g/dL (3.5-5.0); Alkaline Phosphatase 115 U/L (39-117); Anion Gap 15 (12-20); Aspartate Amino Transferase 23 U/L (5-31); Bilirubin Direct 0.3 mg/dL (0.0-0.5); Bilirubin Total 1.4 mg/dL (0.0-1.0); Blood Urea Nitrogen 16 mg/dL (9-16); Calcium 8.9 mg/dL (8.4-10.2); Carbon Dioxide 22 mmol/L (22-29); Chloride 106 mmol/L (96-108); Creatinine Clr Calc Pharmacy 51.3; Estimated Glomerular Filt Rate > 60; Glucose Random 102 mg/dL (60-115); Magnesium 1.8 mg/dL (1.6-2.6); Potassium 4.4 mmol/L (3.3-5.1); Sodium 139 mmol/L (135-145); Total Protein 5.9 g/dL (6.5-8.0)
[2022-10-15 11:11] LABS: Troponin-I High Sensitivity < 3.5 ng/L (<3.5-17.0)
[2022-10-15 11:12] LABS: IDNOW Serial# BCCEAD1C
[2022-10-15 11:13] LABS: COVID-19 Test Negative (Negative)
[2022-10-15 11:43] VITALS: BP 116/66; PULSE 57
[2022-10-15 11:44] VITALS: BP 145/84; BP 151/72; PULSE 85; PULSE 98
[2022-10-15 12:43] LABS: Appearance Urine Clear; Color Urine Yellow; Glucose Urine UA Negative (Negative); Leukocyte Esterase Urine Negative (Negative); Nitrite Urine Negative (Negative); PH 6.5 (5.0-9.0); Specific Gravity - Urine >= 1.030 (1.005-1.025); Urine Blood Negative (Negative); Urine Ketones Negative (Negative); Urine Protein Negative (Neg-Trace)
[2022-10-15 13:16] VITALS: BP 119/72; PULSE 66; RESP 12; O2SAT 99
== END 2022-10-15 13:23 | disposition home or self-care (01) ==
PROVIDERS: Emergency Provider Emergency Medicine; PCP Internal Medicine
DX: R55 Syncope and collapse (principal); R47.81 Slurred speech; Z20.822 Contact with and (suspected) exposure to COVID-19; Z20.828 Contact with and (suspected) exposure to other viral communicable diseases; Z79.899 Other long term (current) drug therapy
CPT/HCPCS: 36415; 70450; 70496; 70498; 80048; 80076; 81003; 83735; 84484; 85025; 85610; 87635; 93005; 99284; Q9967